=== PATIENT | female | born 1980 | race Caucasian/White ===

== ENCOUNTER → 2020-12-11 09:44 | Outpatient (CLI) | payer MEDICARE, SELFPAY ==
--- NOTE | ~2020-12-11 | MMUS_ITS ---
EXAMINATION: MM diagnostic ruth RT w francisco, US breast RT limited HISTORY: Reported right mammographic subareolar asymmetry on outside mammogram examination of 10/31/19 81 from [facility] TECHNIQUE: Additional 3-D tomosynthesis images of the right breast were performed and synthetic 2-D i mages were generated. CAD analysis was submitted and interpreted. High resolution targeted right suba reolar and 11-1:00 breast ultrasound was performed. COMPARISON: 10/30/2020 bilateral screening mammogram BREAST PARENCHYMAL COMPOSITION: There are scattered areas of fibroglandular density. FINDINGS: MAMMOGRAPHIC FINDINGS: No suspicious mass or architectural distortion is detected. No malignant calcification, skin thickeni ng or retraction. There is mild asymmetric density in the subareolar and upper mid right breast elva red to the left on 10/31/1999 21 Imaging [facility] mammogram examination; therefore THE SUBAREOL AR AREA AND UPPER MID RIGHT BREAST WAS PERFORMED.. ULTRASOUND: No abnormal mass or suspicious shadowing or other significant abnormality is noted in the subareolar area from 11:00 to 1:00. IMPRESSION: 1. No mammographic evidence of malignancy 2. Routine mammographic screening is recommended. BI-RADS Category 1: Negative Reviewed, dictated and finalized at location A. IMPRESSION: 1. No mammographic evidence of malignancy 2. Routine mammographic screening is recommended. BI-RADS Category 1: Negative
== END ==
PROVIDERS: Visit Provider Obstetrics & Gynecology
DX: R92.8 Other abnormal and inconclusive findings on diagnostic imaging of breast (principal)
CPT/HCPCS: 76642; 77061; 77065; G0279

== ENCOUNTER 2021-04-04 22:30 | Emergency (ER) | payer MEDICARE, SELFPAY ==
--- NOTE | ~2021-04-04 | CT_ITS ---
EXAMINATION: CT abdomen pelvis w con INDICATION: Abdominal pain TECHNIQUE: Computed tomographic images of the abdomen and pelvis were obtained after the administrati on of 100 cc of Omnipaque 350 intravenous contrast. The dose-length product (DLP) was 454.45 mGy-cm. Automated exposure control and iterative reconstruction technique were employed. COMPARISON: None available FINDINGS: The lung bases are clear. The heart size is normal. The liver, spleen, pancreas, gallbladde r, and adrenal glands are normal. The kidneys are unremarkable. No pathologically enlarged abdominal or pelvic lymph nodes are identified. There is no free intraperitoneal gas or evidence of bowel obstr uction. The appendix is normal. There are changes of posterior fusion from L4 through S1. A small fat -containing umbilical hernia is noted. IMPRESSION: 1. No CT correlate for the patient's symptoms. Reviewed, dictated and finalized at location A. UNT RECEIVABLE ASSOCIATE
[2021-04-04 22:35] VITALS: BP 137/90; PULSE 124; RESP 14; TEMP 36.6; O2SAT 100
[2021-04-04 23:00] LABS: Basophils Absolute Auto 0.1 K/mm3 (0.0-0.1); Basophils Percent Auto 0.9 % (0.2-1.2); Eosinophils Absolute Auto 0.1 K/mm3 (0-0.3); Eosinophils Percent Auto 1.6 % (0-4.4); Hematocrit 38.7 % (37.0-47.0); Hemoglobin 13.8 g/dL (12.0-15.0); Immature Granulocyte Absolute 0.02 K/mm3 (0.00-0.031); Immature Granulocyte Percent A 0.3 % (0-0.5); Lymphocytes Absolute Auto 2.26 K/mm3 (0.9-3.2); Lymphocytes Percent Auto 33.1 % (18.3-44.2); Mean Corpuscular HGB Conc 35.7 g/dl (32-36); Mean Corpuscular Hemoglobin 31.9 pg (26-34); Mean Corpuscular Volume 89.4 fl (80-100); Mean Platelet Volume 9.7 fl (7.4-10.4); Monocytes Absolute Auto 0.8 K/mm3 (0.1-0.6); Monocytes Percent Auto 11.6 % (2.6-8.5); Neutrophils Absolute Auto 3.6 K/mm3 (1.3-6.7); Neutrophils Percent Auto 52.5 % (45.5-73.1); Platelet Count Result 279 k/mm3 (150-375); Red Blood Count 4.33 M/mm3 (4.2-5.4); Red Cell Distribution Width 11.5 % (11.5-14.5); White Blood Count 6.8 K/mm3 (4.5-10.0)
--- NOTE | 2021-04-04 23:06 | ED.ABDPAIN ---
HPI - Abdominal Pain General Chief Complaint: Abdominal Pain Stated Complaint: diarrhea, abdominal pain, colonoscopy yesterday Time Seen by Provider: 04/04/21 22:39 Source: patient Mode of arrival: ambulatory Limitations: no limitations History of Present Illness HPI narrative: This is a 40 year old female that presents to the ER for diarrhea present since yesterday. Reports she had a colonoscopy at [facility] yesterday. Ever since she has had ongoing diarrhea. Associated with crampy abdominal pain. Also reports some episodes of nausea and vomiting. Denies fever, dysuria, or hematochezia. Related Data Allergies Allergy/AdvReac Type Severity Reaction Status Date / Time codeine Allergy Intermediate Hives / Verified 04/04/21 23:24 Red Face acetaminophen [From Vicodin] Allergy Hives Verified 04/04/21 23:24 hydrocodone [From Vicodin] Allergy Hives Verified 04/04/21 23:24 metronidazole [From Flagyl] Allergy Nausea and Verified 04/04/21 23:24 Vomiting ondansetron [From Zofran] Allergy Hives Verified 04/04/21 23:24 pregabalin [From Lyrica] Allergy Anaphylaxis Verified 04/04/21 23:24 Review of Systems Review of Systems: CONSTITUTIONAL: Denies fever GASTROINTESTINAL: Reports abdominal pain, nausea, vomiting, and diarrhea. GENITOURINARY: Denies dysuria or hematuria. All systems reviewed & are unremarkable except as noted in HPI and below PMFSH Past Medical History Medical History (Updated 04/05/21 @ 00:45 by Jo Ann Guzman PA-C) History of migraine Surgical History Surgical History (Updated 04/04/21 @ 23:14 by Jo Ann Guzman PA-C) History of colonoscopy Social History Social History (Updated 04/04/21 @ 23:14 by Jo Ann Guzman PA-C) Substance use: never Exam Narrative: GENERAL: Well-appearing, well-nourished, and in no acute distress. HEAD: Normocephalic, atraumatic. EYES: EOMI. CHEST: Clear to auscultation. No respiratory distress. No wheezes rales or rhonchi HEART: Regular rate and rhythm. No murmur heard. Normal peripheral pulses. ABDOMEN: Soft, nontender, nondistended, normal active bowel sounds. EXTREMITIES: Normal range of motion. No edema. SKIN: Warm, dry, no rash. NEURO: No focal deficits. Alert and oriented x3. PSYCH: Normal mood and affect Course Vital Signs Vital signs: Vital Signs Temperature 97.9 F 04/04/21 22:35 Pulse Rate 124 H 04/04/21 22:35 Respiratory Rate 14 04/04/21 22:35 Blood Pressure 137/90 04/04/21 22:35 Pulse Oximetry 100 04/04/21 22:35 Temperature 97.9 F 04/04/21 22:35 Pulse Rate 124 H 04/04/21 22:35 Respiratory Rate 14 04/04/21 22:35 Blood Pressure 137/90 04/04/21 22:35 Pulse Oximetry 100 04/04/21 22:35 MDM - Abdominal Pain MDM Narrative Medical decision making narrative: Patient presents to the emergency department for abdominal cramping and diarrhea. Had colonoscopy yesterday at [facility]. She is afebrile and nontoxic-appearing. Tachycardic upon arrival. This normalized with IV fluid administration. CBC is without leukocytosis. Metabolic panel with mild dehydration. Patient hydrated with IV fluids in the ED. UA without evidence of infection. CT scan of the abdomen and pelvis is without acute findings. Shows fluid present in a few loops of small bowel as well as a portion of the ascending colon, nonspecific. Patient was updated on case findings. Reports improvement with IV fluids and pain medications. She is to follow-up with her GI doctor. She was given warnings to return to the ER Lab Data Attestation: I reviewed the patient's lab results. Result diagrams: 04/04/21 22:50 04/04/21 22:51 Labs: Lab Results 04/04/21 04/04/21 04/05/21 Range/Units 22:50 22:51 00:06 WBC 6.8 (4.5-10.0) K/mm3 RBC 4.33 (4.2-5.4) M/mm3 Hgb 13.8 (12.0-15.0) g/dL Hct 38.7 (37.0-47.0) % MCV 89.4 (80-100) fl MCH 31.9 (26-34) pg MCHC 35.7 (32-36) g/dl RDW 11.5
[2021-04-04 23:11] LABS: Alanine Aminotransferase 19 U/L (4-35); Albumin Level 4.9 g/dL (3.5-5.1); Alkaline Phosphatase 68 U/L (38-126); Anion Gap 12 mmol/L (8-16); Aspartate Amino Transferase 28 U/L (14-36); Bilirubin,Total 0.5 mg/dL (0.2-1.3); Blood Urea Nitrogen 18 mg/dL (7-17); Calcium 9.5 mg/dL (8.4-10.2); Carbon Dioxide 18 mmol/L (22-30); Chloride 109 mmol/L (98-107); Estimated CRCL calculation 82 ml/min; Estimated Glomerular Filt Rate > 60; Glucose 116 mg/dL (65-110); Lipase 115 U/L (23-300); Potassium 3.7 mmol/L (3.4-5.0); Sodium 139 mmol/L (137-145)
[2021-04-04] MEDS: SODIUM CHLORIDE 0.9% IV 1,000 ML 999 ML IV CONT (23:26)
[2021-04-05 00:16] LABS: Add Urine Microscopic? YES; Appearance Urine Clear (Clear); Bilirubin Urine Negative (Negative); Blood Urine Negative (Negative); Color Urine Yellow (Yellow); Glucose Urine UA Negative (Negative); Ketones Urine Negative (Negative); Leukocyte Esterase Ur Negative LEU/UL (Negative); Mucus Urine Few /lpf; Nitrate Urine Negative (Negative); Protein Urine Negative (Negative); RBC Urine 0-2 /hpf (0-2); Urobilinogen Urine Negative mg/dL (<2.0); WBC Urine 0-3 /hpf
[2021-04-05 00:19] LABS: Specific Grav Ur 1.033 (1.001-1.035)
[2021-04-05] MEDS: DICYCLOMINE HCL INJ 20 MG/2 ML VIAL IM (01:09)
[2021-04-05 01:16] VITALS: BP 117/71; PULSE 105; RESP 18; O2SAT 100
== END 2021-04-05 01:16 | disposition home or self-care (01) ==
PROVIDERS: Physician Assistant; Emergency Provider Emergency Medicine; PCP Family Medicine
DX: R19.7 Diarrhea, unspecified (principal)
CPT/HCPCS: 36415; 74177; 80053; 81001; 81025; 83690; 85025; 96365; 96372; 99284; J0131; J0500; J7030; Q9967

== ENCOUNTER → 2021-06-12 13:48 | Outpatient (CLI) | payer MEDICARE, SELFPAY ==
--- NOTE | ~2021-06-12 | MR_ITS ---
EXAMINATION: MR lumbar spine wo/w con DATE: 06/12/2021 14:50 INDICATION: Lumbar radiculopathy. TECHNIQUE: Magnetic resonance imaging (MRI) of the lumbar spine was performed without and with 14 mL MultiHance intravenous contrast. Sequences included sagittal T2-weighted FSE, sagittal T2-weighted FS FSE, and sagittal and axial T1-weighted FSE. Postcontrast sequences included axial T2-weighted FSE a nd axial and sagittal T1-weighted FS FSE. COMPARISON: CT abdomen and pelvis 04/05/2021 FINDINGS: There is 4 degrees dextrocurvature of thoracolumbar spine. There are changes of posterior f usion procedure from L4 to S1 with pedicle screws. There is mildly decreased disc height at L5-S1 wit h disc calcifications. The distal spinal cord signal intensity is normal. The conus medullaris is at L1. The following disc levels are specifically discussed: L1-L2: The disc does not extend beyond the endplate margin. There is mild bilateral facet joint osteo arthritis. There is no neural foraminal stenosis. There is no central canal stenosis. L2-L3: The disc is mildly bulging. There is moderate bilateral facet joint osteoarthritis. There is m ild bilateral neural foraminal stenosis. There is no central canal stenosis. L3-L4: The disc does not extend beyond the endplate margin. There is mild bilateral facet joint osteo arthritis. There is no neural foraminal stenosis. There is no central canal stenosis. L4-L5: The disc does not extend beyond the endplate margin. There is ankylosis of the facet joints wi th mild hypertrophy. There is no neural foraminal stenosis. There is no central canal stenosis. There is posterior decompression. L5-S1: The disc does not extend beyond the endplate margin. There is ankylosis of the facet joints wi th mild hypertrophy. There is mild left neural foraminal stenosis. There is no central canal stenosis . There is posterior decompression. IMPRESSION: 1. Mild lumbar spondylosis. 2. Posterior fusion procedure from L4 to S1. Reviewed, dictated and finalized at location A.
[2021-06-12 14:26] LABS: Estimated Glomerular Filt Rate > 60
== END ==
DX: M54.16 Radiculopathy, lumbar region (principal); M43.06 Spondylolysis, lumbar region; Z98.1 Arthrodesis status
CPT/HCPCS: 72158; A9577

== ENCOUNTER 2022-08-04 22:10 | Emergency (ER) | payer MEDICARE, SELFPAY ==
[2022-08-04 22:15] VITALS: BP 134/106; PULSE 113; RESP 18; TEMP 36.3; O2SAT 99
== END 2022-08-05 01:21 | disposition left against medical advice (07) ==
DX: Z53.21 Procedure and treatment not carried out due to patient leaving prior to being seen by health care provider (principal)
CPT/HCPCS: 99199

== ENCOUNTER → 2023-03-11 14:51 | Outpatient (CLI) | payer MEDICARE, SELFPAY ==
--- NOTE | ~2023-03-11 | MM_ITS ---
EXAMINATION: MM screening ruth BI w francisco HISTORY: Screening mammogram TECHNIQUE: Craniocaudal and mediolateral oblique 3-D tomosynthesis images were obtained and synthetic 2-D images were generated. CAD analysis was submitted and interpreted. COMPARISON: 12/11/2020, 10/30/2020 BREAST PARENCHYMAL COMPOSITION: There are scattered areas of fibroglandular density. FINDINGS: No suspicious mass, calcification, or architectural distortion are identified in either cooper ast to suggest malignancy. There has been no suspicious interval change. IMPRESSION: 1. No mammographic evidence of malignancy. 2. Recommend routine screening mammography in one year. BI-RADS Category 1: Negative Reviewed, dictated and finalized at location A. ERSITY MANAGER
== END ==
PROVIDERS: PCP Obstetrics & Gynecology; Visit Provider Obstetrics & Gynecology
DX: Z12.31 Encounter for screening mammogram for malignant neoplasm of breast (principal)
CPT/HCPCS: 77063; 77067

== ENCOUNTER 2023-04-09 13:02 | Outpatient (CLI) | payer MEDICARE, SELFPAY ==
--- NOTE | 2023-04-09 | ECHO_ITS ---
Patient Info Name: Carlos Nicole Age: 42 years : 1980 Gender: Female Ht: 65 in Wt: 163 lbs BSA: 1.86 m2 HR: 80 bpm BP: 120 / 70 mmHg Heart Rhythm: Sinus Rhythm Technical Quality: Fair Exam Date: 04/09/2023 1:13 PM Exam Location: Echo Lab Patient Status: Outpatient Admit Date: 04/09/2023 Staff Ordering Physician: Cordell, Dano Anderson MD Business Performance Advisor: Attending Provider: Cordell, Dano Anderson MD Referring Physician: Cordell CARRILLO; Exam Type: CA echo doppler color flow Study Info Indications I50.9 - Heart failure, unspecified Complete two-dimensional, color flow and Doppler transthoracic echocardiogram is performed. Summary 1. Complete two-dimensional, color flow and Doppler transthoracic echocardiogram is performed. 2. Left ventricular chamber dimension is normal. 3. Left ventricular systolic function is normal, estimated at 65-70%. 4. Right ventricular systolic function is normal. 5. No significant valvular disease. Left Ventricle Left ventricular chamber dimension is normal. Left ventricular systolic function is normal, estimated at 65-70%. There is no increased left ventricular wall thickness. The left ventricular diastolic function is normal. Right Ventricle Right ventricular chamber dimension is normal. Right ventricular systolic function is normal. Left Atria Left atrial chamber dimension is normal. Right Atria Right atrial chamber dimension is normal. Atrial Septum Intact interatrial septum visualized by color flow imaging. Aortic Valve The aortic valve is probable trileaflet. There is no aortic valve stenosis. There is no aortic valve regurgitation. Pulmonic Valve The pulmonic valve is not well visualized. Mitral Valve There is trace mitral valve regurgitation. Tricuspid Valve There is trace tricuspid valve regurgitation. Pericardium/Pleural There is no pericardial effusion. Inferior Vena Cava Normal inferior vena cava with >50% collapse upon inspiration consistent with normal right atrial pressure, 3 mmHg. Aorta The aortic root size at the sinus of Valsalva is normal. Left Ventricular Outflow Tract Name Value Normal LVOT 2D LVOT Diameter 1.9 cm LVOT Doppler LVOT Peak Gradient 4 mmHg LVOT Mean Gradient 2 mmHg LVOT VTI 21 cm LVOT VTI/AV VTI Ratio 0.6 LVOT Stroke Volume 61 ml LVOT CO 4.4 l/min LVOT CI 2.4 l/min/m2 Pulmonic Valve Name Value Normal PV Doppler PV Peak Gradient 2 mmHg Mitral Valve Name Value Normal MV Doppler
== END 2023-04-09 13:03 | disposition home or self-care (01) ==
PROVIDERS: PCP Family Medicine; Visit Provider Obstetrics & Gynecology
DX: R89.1 Abnormal level of hormones in specimens from other organs, systems and tissues (principal); I50.9 Heart failure, unspecified
CPT/HCPCS: 93306

== ENCOUNTER 2023-11-26 15:31 | Outpatient (CLI) | payer MEDICARE, SELFPAY ==
--- NOTE | ~2023-11-26 | CT_ITS ---
CLINICAL INDICATION: Adrenal cortical insufficiency COMPARISON: 04/05/2021. TECHNIQUE: Computed tomography (CT) of the abdomen was performed without intravenous contrast. The do se-length product was 267.05 mGy-cm. FINDINGS/OBSERVATIONS: Visualized lower thorax:The bilateral lung bases are clear. The heart is of normal size, without pericardial effusion. A small air opacified hiatal hernia is present. Liver: The liver is not enlarged measuring 15 cm in longitudinal dimension. Gallbladder and biliary system: The gallbladder is only minimally distended, without calcified stones . Pancreas: Limited evaluation without intravenous contrast Spleen: The spleen is not enlarged. Kidneys: No hydronephrosis or renal calculi. Adrenal glands: Unremarkable in their course and contour Gastrointestinal tract: Fecal stasis within the colon. Appendix:Not included on the submitted examination. Vasculature: Unremarkable Lymph nodes: No pathologically enlarged or morphologically nodes within the retroperitoneum or the ro ot of the mesentery. IMPRESSION: Unremarkable noncontrast enhanced CT examination of the abdomen, as detailed above. Reviewed, dictated and finalized at location A. IMPRESSION: Unremarkable noncontrast enhanced CT examination of the abdomen, as detailed ab ove.
== END 2023-11-26 15:32 | disposition home or self-care (01) ==
LOC: MICIMG 15:33
PROVIDERS: PCP Physician Assistant; Visit Provider Physician Assistant
DX: E27.40 Unspecified adrenocortical insufficiency (principal)
CPT/HCPCS: 74150

== ENCOUNTER 2023-12-28 15:53 | Emergency (ER) | payer MEDICARE, SELFPAY ==
[2023-12-28 15:55] VITALS: BP 126/90; PULSE 110; RESP 18; TEMP 36.2; O2SAT 100
--- NOTE | 2023-12-28 17:28 | ED.DENTAL ---
HPI - Dental/Oral General Chief complaint: Dental/Oral Stated complaint: right jaw swelling Time Seen by Provider: 12/28/23 17:13 History of Present Illness HPI Narrative: 43-year-old female presents emergency department for swelling and pain to her right anterior lower gumline for the past couple of days. Patient states she made appoint with her dentist but is unable to get until tomorrow evening. States she has been taking aspirin and ibuprofen without improvement. She reports nausea but denies vomiting, fevers. Denies difficulty breathing or swallowing, drooling, trismus, otalgia or sore throat. Related Data Home Medications Medication Instructions Recorded Confirmed amitriptyline 50 mg tablet 50 mg PO QHS 01/21/23 12/01/23 famotidine 20 mg tablet 20 mg PO DAILY 01/21/23 12/01/23 methylprednisolone acetate 40 40 mg IM .every 3 months 01/21/23 12/01/23 mg/mL suspension for injection (Depo-Medrol) morphine 15 mg immediate release 15 mg PO Q8H PRN 01/21/23 12/01/23 tablet oxycodone-acetaminophen 5 mg-325 1 tablet PO Q6H PRN 01/21/23 12/01/23 mg tablet (Percocet) propranolol 80 mg tablet 80 mg PO DAILY 01/21/23 12/01/23 sumatriptan succinate 50 mg tablet See Rx Instructions PO .COMPLEX 01/21/23 12/01/23 tizanidine 4 mg capsule 4 mg PO QHS PRN 01/21/23 12/01/23 topiramate 25 mg tablet (Topamax) 25 mg PO DAILY 01/21/23 12/01/23 topiramate 50 mg tablet (Topamax) 50 mg PO BID 01/21/23 12/01/23 Allergies Allergy/AdvReac Type Severity Reaction Status Date / Time metronidazole [From Flagyl] Allergy Unknown Verified 12/28/23 15:57 ondansetron [From Zofran] Allergy Unknown Verified 12/28/23 15:57 pregabalin [From Lyrica] Allergy Unknown Verified 12/28/23 15:57 Review of Systems Review of Systems: All systems reviewed & are unremarkable except as noted in HPI and below PMFSH Past Medical History Medical History History of migraine Surgical History Surgical History History of colonoscopy Family History Family History Mother Carcinoma of colon A-fib Grandparent Carcinoma of colon Social History Social History Smoking status: Unknown if ever smoked Alcohol intake: current Alcohol use details: social Substance use: never Exam Narrative: GENERAL: Well-appearing, well-nourished, and in no acute distress. HEAD: Normocephalic, atraumatic. EYES: EOMI. ENT: Nares clear, no rhinorrhea or epistaxis. Mucous membranes moist. Staining to the right lower molars with receding gum lines, mild focal edema to the right anterior lower, line. No submandibular edema, no periapical abscess. No areas of fluctuation or cellulitis. No crepitus or vesicles. Posterior pharynx without erythema or tonsillar hypertrophy, uvula is midline. Patient tolerating secretions. No trismus. Floor mouth is soft without crepitus. Bilateral TMs are rodriguez nonbulging with normal canals. NECK: Supple. CHEST: Clear to auscultation. No respiratory distress. HEART: Regular rate and rhythm. No murmur heard. Normal peripheral pulses. EXTREMITIES: Normal range of motion. No edema. SKIN: Warm, dry, no rash. NEURO: No focal deficits. Alert and oriented x3 Course Vital Signs Vital signs: Vital Signs Temperature 97.2 F L 12/28/23 15:55 Pulse Rate 110 H 12/28/23 15:55 Respiratory Rate 18 12/28/23 15:55 Blood Pressure 126/90 12/28/23 15:55 Pulse Oximetry 100 12/28/23 15:55 Temperature 97.2 F L 12/28/23 15:55 Pulse Rate 110 H 12/28/23 15:55 Respiratory Rate 18 12/28/23 15:55 Blood Pressure 126/90 12/28/23 15:55 Pulse Oximetry 100 12/28/23 15:55 MDM - Dental/Oral MDM Narrative Medical decision making narrative: 43-year-old female presents emergency department for right anterior lower gum pain and edema for the past couple of days. Vitals with tachycardia 110. Patient does appear anxious which is likely cause of tachycardia. She is afebrile nontoxic appearing. Exam is significant for the above, notably a focal area of edema and tenderness to palpation to the right anterior lower gumline. There is no evidence of periapical abscess.No Crepitus, fluctuance. No trismus. She is tolerating her secretions and speaking in full sentences. Patient does have receding gum lines staining to the right lower molars and premolars. Suspect the source of patient's presentation is secondary to dental infection. Feel she is safe to be discharged home with p.o. antibiotics. Will provide ibuprofen and viscous lidocaine for symptomatic control. Strongly encouraged her to follow up with her dentist tomorrow at her appointment. Discussed strict ED return precautions. She is agreeable to plan and verbalized understanding. Discharged in stable condition. Discharge Plan Discharge Clinical Impression: Toothache Patient Disposition: Home, Self-Care Condition: Stable Instructions: Antibiotic Form, Toothache (ED) Additional Instructions: You were evaluated in the emergency department for pain and swelling to her gum line. This is likely due to an intraoral infection or dental infection. Please take the antibiotic as directed. Take ibuprofen and use the lidocaine as directed. Follow-up closely with her dentist to your appointment tomorrow. Return to the emergency department if you develop a fever of 100.4 or greater, your unable to tolerate food or fluids, you begin to drool, have difficulty breathing, or other concerning symptoms. Prescriptions: New amoxicillin-pot clavulanate 875-125 mg tablet 1 tablet PO Q12H Qty: 14 0RF lidocaine HCl [Lidocaine Viscous] 2 % solution 1 applic mucous membrane QID PRN (Reason: pain) Qty: 100 0RF ibuprofen 800 mg tablet 800 mg PO TID PRN (Reason: pain) Qty: 20 0RF No Action amitriptyline 50 mg tablet 50 mg PO QHS sumatriptan succinate 50 mg tablet See Rx Instructions PO .COMPLEX Rx Instructions: take 1 tab at onset of headache; if no relief may repeat 1 tab after at least 2 hrs; max = 4 tabs/24 hr PO topiramate [Topamax] 50 mg tablet 50 mg PO BID topiramate [Topamax] 25 mg tablet 25 mg PO DAILY propranolol 80 mg tablet 80 mg PO DAILY famotidine 20 mg tablet 20 mg PO DAILY tizanidine 4 mg capsule 4 mg PO QHS PRN oxycodone-acetaminophen [Percocet] 5-325 mg tablet 1 tablet PO Q6H PRN morphine 15 mg tablet 15 mg PO Q8H PRN methylprednisolone acetate [Depo-Medrol] 40 mg/mL suspension 40 mg IM .every 3 months Rx Instructions: as a single dose diphenoxylate-atropine 2.5-0.025 mg tablet 1 tablet PO TID PRN (Reason: diarrhea) 3 Days Qty: 10 0RF calcium polycarbophil [FiberCon] 625 mg tablet 1,250 mg PO BID Qty: 120 12RF dicyclomine 10 mg capsule See Rx Instructions .ROUTE .COMPLEX Qty: 270 1RF Dose Instruction: TAKE 1 CAPSULE BY MOUTH THREE TIMES DAILY Rx Instructions: TAKE 1 CAPSULE BY MOUTH THREE TIMES DAILY promethazine 12.5 mg tablet 12.5 mg PO TID PRN (Reason: nausea and vomiting) Qty: 60 1RF budesonide 3 mg capsule,delayed,extend.release 9 mg PO DAILY Qty: 90 1RF Follow-up/Referrals: Anabelle,CHARLY Briggs [Primary Care Provider] - Stand Alone Forms: Work/School Release IP
[2023-12-28] MEDS: KETOROLAC 30 MG/ML VIAL (*BKC) IM (17:38)
[2023-12-28] MEDS: HYDROcodone/acetaminophen (*CRX) 5-325 MG TABLET 1 TAB PO (17:38)
[2023-12-28] MEDS: AMOXICILLIN/CLAVULANATE K 875-125 MG TAB 1 TABLET PO (17:38)
[2023-12-28 17:41] VITALS: BP 147/100; PULSE 90; RESP 18; TEMP 36.4; O2SAT 100
== END 2023-12-28 17:47 | disposition home or self-care (01) ==
PROVIDERS: Emergency Provider Physician Assistant; PCP Physician Assistant
DX: K08.9 Disorder of teeth and supporting structures, unspecified (principal); Z79.899 Other long term (current) drug therapy
CPT/HCPCS: 96372; 99283; A9270; J1885

== ENCOUNTER 2024-06-02 14:00 | Outpatient (CLI) | payer MEDICARE, OTHER, SELFPAY ==
--- OUTSIDE RECORDS SUMMARY | 2024-06-02 14:21 | XMS_ITS | Clinical Summary ---
Author Organization [facility] Address [address] [place] [address] Care Team Providers Care Lock And Dam Operator Name Role Phone None, Provider MD Primary Care Provider Unavaila ble Allergies Active Allergy Reactions Criticality Noted Date Comments Metronidazole Swelling 12/29/2023 Pregabalin Unknown 12/29/2023 Ondansetron Nausea and Vomiting 12/29/2023 Medications No known medications Social History Tobacco Use Types Packs/Day Years Used Date Smoking Tobacco: Never Assessed Comments Unknown Sex and Gender Information Value Date Recorded Sex Assigned at Not on file Legal Sex Female 5:43 PM MANAGER TRADING Gender Identity Not on file Sexual Orientation Not on file Last Filed Vital Signs Vital Sign Reading Time Taken Comments Blood Pressure 138/90 12/29/2023 8:01 PM MANAGER TRADING Pulse 100 12/29/2023 8:01 PM MANAGER TRADING Temperature 37.1 C (98.7 F) 12/29/2023 8:01 PM MANAGER TRADING Respiratory Rate 16 12/29/2023 8:01 PM MANAGER TRADING Oxygen Saturation 100% 12/29/2023 8:01 PM MANAGER TRADING Inhaled Oxygen Concentration - - Weight 70.5 kg (155 lb 6.8 oz) 12/29/2023 6:12 P M MANAGER TRADING Height 166.4 cm (5' 5.5 ) 12/29/2023 6:12 PM MANAGER TRADING Body Mass Index 25.47 12/29/2023 6:12 PM MANAGER TRADING Plan of Treatment Health Maintenance Due Date Last Done Comments Cervical Cancer Screening Pap Smear (Age 30 to 64) Every 3 Years 1980 Colorectal Cancer Screening Colonoscopy (10 Years) 1980 Annual Physical 05/06/1982 DTaP, Tdap and Td Vaccines (5 - Tdap) 08/06/1994 08/05/1994, 09/18/1984, 12/13/1980, Additional history exists Hepatitis C 05/06/1997 Hepatitis B Vaccines (1 of 3 - 19+ 3-dose series) 05/06/1998 Cervical Cancer Screening Pap with HPV Testing (Age 30 to 64) Every 5 Years 05/06/2009 Cervical Cancer Screening with HPV 05/06/2009 Mammogram Screening 2019 COVID-19 Vaccine (2023- season) 2023 06/12/2020, 05/20/2020 HPV Vaccines Aged Out No longer eligi ble based on patient's age to complete this topic Meningococcal B Vaccine Aged Out No l onger eligible based on patient's age to complete this topic Meningococcal Vaccine Aged Out No katy nicole eligible based on patient's age to complete this topic Pneumococcal Vaccine: Pediatrics (0 to 5 Years) and At-Risk Patients (6 to 49 Years) Aged Out No longer eligible based on patient's age to complete this topic RSV Immunizations Under 20 Months Aged Out No longer eligible based on patient's age to complete this topic Insurance [employer] Care Teams Lock And Dam Operator Relationship Specialty Start Date End Date None, Provider, PCP - General UNKNOWN PHYSICIAN SPECIALTY 12/29/23
--- OUTSIDE RECORDS SUMMARY | 2024-06-02 14:21 | XMS_ITS | Data Portability ---
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 Lengthy discussion regarding environmental causes of vaginal irritation/disch arge. Pateint cannot come up with anything that would be causing problem. Not available 06/04/2023 15:28:32 08/18/2023 08/18/2023/2 labs. [email or web address] Not available 03/2023 12:52:08 Plan of Treatment Reminders Order Date Submit Date Provider Last Modified By Organization Details Last Modified Time Details Appointments ANNUAL 30 2024 02:30P David Tesfaye MD Not available Not available Not available Lab None recorded. Referral endocrino logy referral 2023 024 [email or web address] Barrba Mckeon MD, [address], [place], [address], 08/14/2023 08:10:50 Procedures None recorded. Surgeries None recorded. Imaging MAMMO, screening , bilateral 2024 025 [email or web address] [facility], [address], [address], [place], [address], 05/04/2024 08:09:37 US, adrenal gland 2023 024 [email or web address] [facility], [address] [address], [place], [address], 09/16/2023 07:53:12 MAMMO, screening , digital, bilateral 2023 024 [email or web address] [facility] (Radiology), [address] [address] , [place], [address], 03/16/2024 10:42:[address] 10 mg tablet 2024 025 [facility]/Pharmacy #2510, [address] [place], [address], 04/27/2024 09:58:45 propranol ol ER 80 mg capsule,2 4 hr,extend ed release 2024 025 [facility]/Pharmacy #2510, [address] [place], [address], 04/27/2024 09:58:55 erythromy charlotte 5 mg/gram (0.5 %) eye ointment 2023 025 [facility] [address] [place], [address], 04/27/2024 09:40:47 promethaz ine 25 mg tablet 2023 024 [facility]/Pharmacy #2510, [address] [place], [address], 09/09/2023 16:12:11 triamcino lone acetonide 0.1 % topical ointment 2023 024 [facility]/Pharmacy #2510, [address] [place], [address], 09/09/2023 16:12:30 trazodone 50 mg tablet 2023 025 [facility]/Pharmacy #2510, [address] [place], [address], 04/12/2024 11:21:54 medroxypr ogesteron e 150 mg/mL intramusc ular suspensio n 2023 024 [facility]/Pharmacy #2510, [address] [place], [address], 06/04/2023 15:27:07 Patient TargetsNo targets recorded. Patient Instructions Encounter Date Encounter Id Patient Instructions Last Modified By Organization Details Last Modified Time 06/04/2023 [id number] learning about breast cancer screening Not available 06/04/2023 15:11:28 04/27/2024 [id number] A healthy lifestyle: care instructions [email or web address] Not available 04/28/2024 10:19:53 Reason for Referral Endocrinology Referral for L oss of hair Referring Physician: Brigitte Ahn, Family Medicine, Encounter Date: 07/31/2023 Results Created Date Observation Date Name Description Value Unit Range Abnormal Flag Note LastModifiedBy Organization Detail LastModifiedTime 05/12/1905/13/2023 SEDIM ENTAT ION RATE- WESTE RGREN sedimentatio n rate-westerg gaurang 2 mm/HR 0-32 Not Available [facility] ([facility]) [address] [place], [address], 05/13/2023 07:13:05 05/12/19 24 05/13/2023 B-TYP E NATRI URETI C PEPTI DE B-type natriuretic peptide 37.9 pg/mL 0.0-10 0.0 Sieme ns ADVIA [facility] XP metho dolog y Not Available [facility] ([facility]) [address] [place], [address], 05/13/2023 08:23:28 05/15/19 24 05/16/2023 COMP. METAB OLIC PANEL (14) glucose 86 mg/dL 70-99 Not Available [facility] ([facility]) [address] [facility] [place], [address], 05/16/2023 06:17:10 05/15/19 24 05/16/2023 COMP. METAB OLIC PANEL (14) BUN 7 mg/dL 6-24 Not Available [facility] ([facility]) [address] [facility] [place], [address], 05/16/2023 06:17:10 05/15/19 24 05/16/2023 COMP. METAB OLIC PANEL (14) creatinine 0.93 mg/dL 0.57-1 .00 Not Available [facility] ([facility]) [address] [facility] [place], [address], 05/16/2023 06:17:10 05/15/19 24 05/16/2023 COMP. METAB OLIC PANEL (14) eGFR 78 mL/mi n/1.7 3 >59 Not Available [facility] ([facility]) [address] [facility] [place], [address], 05/16/2023 06:17:10 05/15/19 24 05/16/2023 COMP. METAB OLIC PANEL (14) BUN/creatini ne ratio 8 9-23 below low normal Not Available [facility] ([facility]) [address] [facility] [place], [address], 05/16/2023 06:17:10 05/15/19 24 05/16/2023 COMP. METAB OLIC PANEL (14) sodium 143 mmol/ L 134-14 4 Not Available [facility] ([facility]) [address] [facility] [place], [address], 05/16/2023 06:17:10 05/15/19 24 05/16/2023 COMP. METAB OLIC PANEL (14) potassium 4.4 mmol/ L 3.5-5. 2 Not Available [facility] ([facility]) [address] [facility] [place], [address], 05/16/2023 06:17:10 05/15/19 24 05/16/2023 COMP. METAB OLIC PANEL (14) chloride 107 mmol/ L 96-106 above high normal Not Available [facility] ([facility]) [address] [facility], [place], [address], 05/16/2023 06:17:10 05/15/19 24 05/16/2023 COMP. METAB OLIC PANEL (14) carbon dioxide, total 21 mmol/ L - Not Available [facility] ([facility]) [address] [facility], [place], [address], 05/16/2023 06:17:10 05/15/19 24 05/16/2023 COMP. METAB OLIC PANEL (14) calcium 9.5 mg/dL 8.7-10 .2 Not Available [facility] ([facility]) [address] [facility], [place], [address], 05/16/2023 06:17:10 05/15/19 24 05/16/2023 COMP. METAB OLIC PANEL (14) protein, total 7.5 g/dL 6.0-8. 5 Not Available [facility] ([facility]) [address] [facility], [place], [address], 05/16/2023 06:17:10 05/15/19 24 05/16/2023 COMP. METAB OLIC PANEL (14) albumin 4.8 g/dL 3.9-4. 9 Not Available [facility] ([facility]) [address] [facility] [place], [address], 05/16/2023 06:17:10 05/15/19 24 05/16/2023 COMP. METAB OLIC PANEL (14) globulin, total 2.7 g/dL 1.5-4. 5 Not Available [facility] ([facility]) [address] [facility] [place], [address], 05/16/2023 06:17:10 05/15/19 24 05/16/2023 COMP. METAB OLIC PANEL (14) A/G ratio 1.8 1.2-2. 2 Not Available [facility] ([facility]) [address] [facility], [place], [address], 05/16/2023 06:17:10 05/15/19 24 05/16/2023 COMP. METAB OLIC PANEL (14) bilirubin, total 0.3 mg/dL 0.0-1. 2 Not Available [facility] ([facility]) [address] [facility], [place], [address], 05/16/2023 06:17:10 05/15/19 24 05/16/2023 COMP. METAB OLIC PANEL (14) alkaline phosphatase 59 IU/L 44-121 Not Available [facility] ([facility]) [address], [place], [address], 05/16/2023 06:17:10 05/15/19 24 05/16/2023 COMP. METAB OLIC PANEL (14) AST (SGOT) 15 IU/L 0-40 Not Available [facility] ([facility]) [address] [facility], [place], [address], 05/16/2023 06:17:10 05/15/19 24 05/16/2023 COMP. METAB OLIC PANEL (14) ALT (SGPT) 15 IU/L 0-32 Not Available [facility] ([facility]) [address] [facility], [place], [address], 05/16/2023 06:17:10 05/15/19 24 05/16/2023 CBC/D IFF AMBIG UOUS DEFAU LT WBC 4.7 x10e3 /uL 3.4-10 .8 Not Available [facility] ([facility]) [address] [facility], [place], [address], 05/16/2023 06:17:11 05/15/19 24 05/16/2023 CBC/D IFF AMBIG UOUS DEFAU LT RBC 4.36 x10e6 /uL 3.77-5 .28 Not Available [facility] ([facility]) [address] [facility], [place], [address], 05/16/2023 06:17:11 05/15/19 24 05/16/2023 CBC/D IFF AMBIG UOUS DEFAU LT hemoglobin 13.4 g/dL 11.1-1 5.9 Not Available [facility] ([facility]) [address] [facility], [place], [address], 05/16/2023 06:17:11 05/15/19 24 05/16/2023 CBC/D IFF AMBIG UOUS DEFAU LT hematocrit 40.3 % 34.0-4 6.6 Not Available [facility] ([facility]) [address] [facility], [place], [address], 05/16/2023 06:17:11 05/15/19 24 05/16/2023 CBC/D IFF AMBIG UOUS DEFAU LT MCV 92 fL 79-97 Not Available [facility] ([facility]) [address] [facility], [place], [address], 05/16/2023 06:17:11 05/15/19 24 05/16/2023 CBC/D IFF AMBIG UOUS DEFAU LT MCH 30.7 pg 26.6-3 3.0 Not Available [facility] ([facility]) [address] [facility], [place], [address], 05/16/2023 06:17:11 05/15/19 24 05/16/2023 CBC/D IFF AMBIG UOUS DEFAU LT MCHC 33.3 g/dL 31.5-3 5.7 Not Available [facility] ([facility]) [address] [facility], [place], [address], 05/16/2023 06:17:11 05/15/19 24 05/16/2023 CBC/D IFF AMBIG UOUS DEFAU LT RDW 11.8 % 11.7-1 5.4 Not Available [facility] ([facility]) [address] [facility] [facility], [place], [address], 05/16/2023 06:17:11 05/15/19 24 05/16/2023 CBC/D IFF AMBIG UOUS DEFAU LT platelets 263 x10e3 /uL 150-45 0 Not Available [facility] ([facility]) [address] [facility], [place], [address], 05/16/2023 06:17:11 05/15/19 24 05/16/2023 CBC/D IFF AMBIG UOUS DEFAU LT neutrophils 38 % notest ab. Not Available [facility] ([facility]) [address] [facility], [place], [address], 05/16/2023 06:17:11 05/15/19 24 05/16/2023 CBC/D IFF AMBIG UOUS DEFAU LT lymphs 50 % notest ab. Not Available [facility] ([facility]) [address], [place], [address], 05/16/2023 06:17:11 05/15/19 24 05/16/2023 CBC/D IFF AMBIG UOUS DEFAU LT monocytes 9 % notest ab. Not Available [facility] ([facility]) [address] [facility], [place], [address], 05/16/2023 06:17:11 05/15/19 24 05/16/2023 CBC/D IFF AMBIG UOUS DEFAU LT eos 2 % notest ab. Not Available [facility] ([facility]) [address] [facility], [place], [address], 05/16/2023 06:17:11 05/15/19 24 05/16/2023 CBC/D IFF AMBIG UOUS DEFAU LT basos 1 % notest ab. Not Available [facility] ([facility]) [address] [facility], [place], [address], 05/16/2023 06:17:11 05/15/19 24 05/16/2023 CBC/D IFF AMBIG UOUS DEFAU LT neutrophils (absolute) 1.8 x10e3 /uL 1.4-7. 0 Not Available [facility] ([facility]) [address] [facility], [place], [address], 05/16/2023 06:17:11 05/15/19 24 05/16/2023 CBC/D IFF AMBIG UOUS DEFAU LT lymphs (absolute) 2.3 x10e3 /uL 0.7-3. 1 Not Available [facility] ([facility]) [address] [facility], [place], [address], 05/16/2023 06:17:11 05/15/19 24 05/16/2023 CBC/D IFF AMBIG UOUS DEFAU LT monocytes(ab solute) 0.4 x10e3 /uL 0.1-0. 9 Not Available [facility] ([facility]) [address] [facility], [place], [address], 05/16/2023 06:17:11 05/15/19 24 05/16/2023 CBC/D IFF AMBIG UOUS DEFAU LT eos (absolute) 0.1 x10e3 /uL 0.0-0. 4 Not Available [facility] ([facility]) [address] [facility], [place], [address], 05/16/2023 06:17:11 05/15/19 24 05/16/2023 CBC/D IFF AMBIG UOUS DEFAU LT baso (absolute) 0.1 x10e3 /uL 0.0-0. 2 Not Available [facility] ([facility]) [address] [facility] [facility], [place], [address], 05/16/2023 06:17:11 05/15/19 24 05/16/2023 CBC/D IFF AMBIG UOUS DEFAU LT immature granulocytes 0 % notest ab. Not Available [facility] ([facility]) [address] [facility], [place], [address], 05/16/2023 06:17:11 05/15/19 24 05/16/2023 CBC/D IFF AMBIG UOUS DEFAU LT immature grans (abs) 0.0 x10e3 /uL 0.0-0. 1 Not Available [facility] ([facility]) [address] [facility], [place], [address], 05/16/2023 06:17:11 05/15/19 24 05/16/2023 CBC/D IFF AMBIG UOUS DEFAU LT hematology comments: - A hand- writt en panel /prof ile was recei marge from your offic e. In accor dance with the [facility] Ambig uous Test Code Polic y dated August 2002, we have assig mikaela CBC with Diffe tavia al/Pl leilani t, Test Code #[address]. If this is not the testi ng you wishe d to recei ve on this speci men, pleas e conta ct the [facility] Clien t Inqui ry/ Techn ical Servi chaka Depar tment to dayday fy the test order . We appre ciate your busin ess. Not Available [facility] ([facility]) [address] [facility], [place], [address], 05/16/2023 06:17:11 08/18/19 24 08/19/2023 TESTO STERO NE,FR EE AND TOTAL testosterone <3 NG/dL 4-50 below low normal Not Available [facility] ([facility]) [address] [place], [address], 08/24/2023 13:08:36 08/18/19 24 08/24/2023 TESTO STERO NE,FR EE AND TOTAL free testosterone (direct) <0.2 Not Available [facility] ([facility]) [address] [facility], [place], [address], 08/24/2023 13:08:36 08/18/19 24 08/19/2023 TSH+F REE T4 TSH 1.960 uIU/m L 0.450- 4.500 Not Available [facility] ([facility]) [address] [facility] [place], [address], 08/24/2023 13:08:36 08/18/19 24 08/19/2023 TSH+F REE T4 T4,free(dire ct) 1.18 NG/dL 0.82-1 .77 Not Available [facility] ([facility]) [address] [facility] [place], [address], 08/24/2023 13:08:36 08/18/19 24 08/19/2023 COMP. METAB OLIC PANEL (14) glucose 89 mg/dL 70-99 Not Available [facility] ([facility]) [address] [facility] [place], [address], 08/24/2023 13:08:37 08/18/19 24 08/19/2023 COMP. METAB OLIC PANEL (14) BUN 12 mg/dL 6-24 Not Available [facility] ([facility]) [address] [facility] [place], [address], 08/24/2023 13:08:37 08/18/19 24 08/19/2023 COMP. METAB OLIC PANEL (14) creatinine 0.79 mg/dL 0.57-1 .00 Not Available [facility] ([facility]) [address] [facility] [place], [address], 08/24/2023 13:08:37 08/18/19 24 08/19/2023 COMP. METAB OLIC PANEL (14) eGFR 95 mL/mi n/1.7 3 >59 Not Available [facility] ([facility]) [address] [facility] [place], [address], 08/24/2023 13:08:37 08/18/19 24 08/19/2023 COMP. METAB OLIC PANEL (14) BUN/creatini ne ratio 15 9-23 Not Available [facility] ([facility]) [address] [facility] [place], [address], 08/24/2023 13:08:37 08/18/19 24 08/19/2023 COMP. METAB OLIC PANEL (14) sodium 138 mmol/ L 134-14 4 Not Available [facility] ([facility]) [address] [facility] [place], [address], 08/24/2023 13:08:37 08/18/19 24 08/19/2023 COMP. METAB OLIC PANEL (14) potassium 4.3 mmol/ L 3.5-5. 2 Not Available [facility] ([facility]) [address] [facility], [place], [address], 08/24/2023 13:08:37 08/18/19 24 08/19/2023 COMP. METAB OLIC PANEL (14) chloride 104 mmol/ L 96-106 Not Available [facility] ([facility]) [address] [facility] [place], [address], 08/24/2023 13:08:37 08/18/19 24 08/19/2023 COMP. METAB OLIC PANEL (14) carbon dioxide, total 19 mmol/ L 20-29 below low normal Not Available [facility] ([facility]) [address] [facility], [place], [address], 08/24/2023 13:08:37 08/18/19 24 08/19/2023 COMP. METAB OLIC PANEL (14) calcium 9.6 mg/dL 8.7-10 .2 Not Available [facility] ([facility]) [address] [facility] [place], [address], 08/24/2023 13:08:37 08/18/19 24 08/19/2023 COMP. METAB OLIC PANEL (14) protein, total 7.4 g/dL 6.0-8. 5 Not Available [facility] ([facility]) [address] [place], [address], 08/24/2023 13:08:37 08/18/19 24 08/19/2023 COMP. METAB OLIC PANEL (14) albumin 4.7 g/dL 3.9-4. 9 Not Available [facility] ([facility] [address] [place], [address], 08/24/2023 13:08:37 08/18/19 24 08/19/2023 COMP. METAB OLIC PANEL (14) globulin, total 2.7 g/dL 1.5-4. 5 Not Available [facility] ([facility]) [address], [place], [address], 08/24/2023 13:08:37 08/18/19 24 08/19/2023 COMP. METAB OLIC PANEL (14) bilirubin, total 0.5 mg/dL 0.0-1. 2 Not Available [facility] ([facility] [address] [place], [address], 08/24/2023 13:08:37 08/18/19 24 08/19/2023 COMP. METAB OLIC PANEL (14) alkaline phosphatase 60 IU/L 44-121 Not Available [facility]) [address] [facility], [place], [address], 08/24/2023 13:08:37 08/18/19 24 08/19/2023 COMP. METAB OLIC PANEL (14) AST (SGOT) 18 IU/L 0-40 Not Available [facility] ([facility] [address] [place] [place], [address], 08/24/2023 13:08:37 08/18/19 24 08/19/2023 COMP. METAB OLIC PANEL (14) ALT (SGPT) 17 IU/L 0-32 Not Available [facility] ([facility]) [address] [facility], [place], [address], 08/24/2023 13:08:37 08/18/19 24 08/19/2023 DHEA- SULFA TE DHEA-sulfate 37.9 ug/dL 57.3-2 79.2 below low normal Not Available [facility] ([facility]) [address] [facility], [place], [address], 08/24/2023 13:08:38 08/18/19 24 08/19/2023 CBC WITH DIFFE RENTI AL/PL ATELE T WBC 7.2 x10e3 /uL 3.4-10 .8 Not Available [facility] ([facility]) [address] [facility], [place], [address], 08/24/2023 13:08:38 08/18/19 24 08/19/2023 CBC WITH DIFFE RENTI AL/PL ATELE T RBC 4.37 x10e6 /uL 3.77-5 .28 Not Available [facility] ([facility]) [address] [facility], [place], [address], 08/24/2023 13:08:38 08/18/19 24 08/19/2023 CBC WITH DIFFE RENTI AL/PL ATELE T hemoglobin 13.3 g/dL 11.1-1 5.9 Not Available [facility] ([facility]) [address] [facility], [place], [address], 08/24/2023 13:08:38 08/18/19 24 08/19/2023 CBC WITH DIFFE RENTI AL/PL ATELE T hematocrit 40.8 % 34.0-4 6.6 Not Available [facility] ([facility]) [address] [facility], [place], [address], 08/24/2023 13:08:38 08/18/19 24 08/19/2023 CBC WITH DIFFE RENTI AL/PL ATELE T MCV 93 fL 79-97 Not Available [facility] ([facility]) [address] [facility], [place], [address], 08/24/2023 13:08:38 08/18/19 24 08/19/2023 CBC WITH DIFFE RENTI AL/PL ATELE T MCH 30.4 pg 26.6-3 3.0 Not Available [facility] ([facility]) [address] [facility], [place], [address], 08/24/2023 13:08:38 08/18/19 24 08/19/2023 CBC WITH DIFFE RENTI AL/PL ATELE T MCHC 32.6 g/dL 31.5-3 5.7 Not Available [facility] ([facility]) [address] [facility], [place], [address], 08/24/2023 13:08:38 08/18/19 24 08/19/2023 CBC WITH DIFFE RENTI AL/PL ATELE T RDW 12.4 % 11.7-1 5.4 Not Available [facility] ([facility]) [address] [facility], [place], [address], 08/24/2023 13:08:38 08/18/19 24 08/19/2023 CBC WITH DIFFE RENTI AL/PL ATELE T platelets 305 x10e3 /uL 150-45 0 Not Available [facility] ([facility]) [address] [facility], [place], [address], 08/24/2023 13:08:38 08/18/19 24 08/19/2023 CBC WITH DIFFE RENTI AL/PL ATELE T neutrophils 68 % notest ab. Not Available [facility] ([facility]) [address] [facility], [place], [address], 08/24/2023 13:08:38 08/18/19 24 08/19/2023 CBC WITH DIFFE RENTI AL/PL ATELE T lymphs 22 % notest ab. Not Available [facility] ([facility]) [address] [facility], [place], [address], 08/24/2023 13:08:38 08/18/19 24 08/19/2023 CBC WITH DIFFE RENTI AL/PL ATELE T monocytes 8 % notest ab. Not Available [facility] ([facility]) [address] [facility], [place], [address], 08/24/2023 13:08:38 08/18/19 24 08/19/2023 CBC WITH DIFFE RENTI AL/PL ATELE T eos 1 % notest ab. Not Available [facility] ([facility]) [address] [facility], [place], [address], 08/24/2023 13:08:38 08/18/19 24 08/19/2023 CBC WITH DIFFE RENTI AL/PL ATELE T basos 1 % notest ab. Not Available [facility] ([facility]) [address] [facility], [place], [address], 08/24/2023 13:08:38 08/18/19 24 08/19/2023 CBC WITH DIFFE RENTI AL/PL ATELE T neutrophils (absolute) 4.9 x10e3 /uL 1.4-7. 0 Not Available [facility] ([facility]) [address] [place], [address], 08/24/2023 13:08:38 08/18/19 24 08/19/2023 CBC WITH DIFFE RENTI AL/PL ATELE T lymphs (absolute) 1.6 x10e3 /uL 0.7-3. 1 Not Available [facility] ([facility]) [address] [place], [address], 08/24/2023 13:08:38 08/18/19 24 08/19/2023 CBC WITH DIFFE RENTI AL/PL ATELE T monocytes(ab solute) 0.6 x10e3 /uL 0.1-0. 9 Not Available [facility] ([facility]) [address] [place], [address], 08/24/2023 13:08:38 08/18/19 24 08/19/2023 CBC WITH DIFFE RENTI AL/PL ATELE T eos (absolute) 0.1 x10e3 /uL 0.0-0. 4 Not Available [facility] ([facility]) [address] [facility], [place], [address], 08/24/2023 13:08:38 08/18/19 24 08/19/2023 CBC WITH DIFFE RENTI AL/PL ATELE T baso (absolute) 0.1 x10e3 /uL 0.0-0. 2 Not Available [facility] ([facility]) [address] [facility], [place], [address], 08/24/2023 13:08:38 08/18/19 24 08/19/2023 CBC WITH DIFFE RENTI AL/PL ATELE T immature granulocytes 0 % notest ab. Not Available [facility] ([facility]) [address] [facility], [place], [address], 08/24/2023 13:08:38 08/18/19 24 08/19/2023 CBC WITH DIFFE RENTI AL/PL ATELE T immature grans (abs) 0.0 x10e3 /uL 0.0-0. 1 Not Available [facility] ([facility]) [address] [facility], [place], [address], 08/24/2023 13:08:38 11/27/19 24 11/26/2023 CT, abdom en, w/o contr ast No observ ation record ed. [facility] [address], [place], [address], 11/27/2023 18:07:31 Result Notes None recorded. Problems Name Problem SNOMED Code Status Onset Date Resolution Date Notes Provider Name and Address Organization Details Recorded Time Urinary incontinence 136051645 Active 2017 RJ Tineo - [facility] 8 08:08:44 Chronic back pain 624615689 Active 2017 Elicia finch, [place] - [facility] 8 08:18:17 Excessive sweating 67971155 Active 2017 [place] [facility] 8 08:18:18 Migraine without aura 47645656 Active 2017 [place] [facility] 8 08:18:20 Adult health examination Active 2017 [place] [facility] 8 08:18:40 Body mass index 25-29 - overweight 634704703 Active 2017 E[place] [facility] 8 08:19:28 Intermittent palpitations 695390561 Active 2018 Elic[place] [facility] 9 13:29:59 Folliculitis 09141294 Active 2018 Elicia [place]ch[place] - [facility] 9 13:33:34 Family history of cancer of colon 377134117 Active 2018 CHARLY HARVEY Attn: Ketty hutson,[address] [place], [address], [place] - [facility] 4 19:19:11 Chronic low back pain 037397842 Active 2023 CHARLY HARVEY Attn: Ketty hutson,[address] [place], [address], [place] [facility] 4 19:19:04 Microscopic colitis 525069638 Active 2023 CHARLY HARVEY Attn: Ketty g,[address] [place], [address], [place] [facility] 4 19:19:18 Migraine 16012346 Active 2023 CHARLY HARVEY Attn: Ketty g,[address] [place], [address], [place] [facility] 4 19:19:14 Tachycardia 6661882 Active 2023 CHARLY HARVEY Attn: Ketty hutson,[address] [facility], [place], [address], [facility] 4 19:19:23 Problem Notes None recorded. Procedures Surgical History Date Name Laterality Status Provider Name and Address Organization Details Recorded Time 3 Date of Last Pap Smear completed Urmila Sawant RN [facility] 06/02/2022 16:12:56 2 Colonoscopy with biopsy completed MIGUELITO Dan [facility] 04/03/2021 10:33:31 1 Most Recent Mammogram completed Urmila Sawant RN [facility] 11/01/2020 15:02:48 Back Surgery completed Urmila Sawant RN [facility] 07/11/2014 15:18:42 Imaging Results Imaging Date Name Status LastModified by Organiz ation Details LastModified Time 11/26/2023 CT, abdomen, w/o contrast completed [facility] 2022 Juan Luis Ann [facility], [place], [address], 11/27/2023 18:07:31 Procedure Notes None recorded. Medical Equipment None Reported. Allergies Allergen ID Allergen Name Allergen Category Reaction Reaction Severity Criticality Documentation Date Start Date Code Code System Note Provider Name and Address Organization Details Recorded Time 73364 codeine medicatio n Not available Not available Not available 07/11/2014 2670 RxNorm Not Available Not Available Not Available 44357 Flagyl medicatio n Not available Not available Not available 07/11/2014 13962 6 RxNorm Not Available Not Available Not Available 34324 Zofran medicatio n Not available Not available Not available 07/11/2014 96595 RxNorm Not Available Not Available Not Available Medications Name Sig Start Date Stop Date Status Note LastModified by Organization Details LastModified Time amitriptyli ne hcl 25 mg tabs 12/18 completed Not Available Not Available Not Available sumatriptan tab 50mgsumatri ptan succinate 12/18 completed Not Available Not Available Not Available promethazin e hcl 25 mg tabs 12/18 completed Not Available Not Available Not Available oxycodone tab 30mgoxycodo ne hcl 12/18 completed Not Available Not Available Not Available viibryd tab 40mgviibryd 12/18 completed Not Available Not Available Not Available fentanyl 100 mcg/hr pt72 12/18 completed Not Available Not Available Not Available diazepam tab 10mgdiazepa m 12/18 completed Not Available Not Available Not Available but/apap/ca f capbutalbit al/apap/caf feine 03/01 completed Not Available Not Available Not Available amitriptyli n tab 25mgamitrip tyline hcl 12/18 completed Not Available Not Available Not Available alprazolam tab 0.5mgalpraz olam 12/18 completed Not Available Not Available Not Available but/apap/ca f tab 12/18 completed Not Available Not Available Not Available promethazin e tab 25mgprometh azine hcl 12/18 completed Not Available Not Available Not Available omeprazole 40 mg cpdr 12/18 completed Not Available Not Available Not Available sumatriptan succinate 50 mg tabs 12/18 completed Not Available Not Available Not Available alprazolam 0.5 mg tabs 12/18 completed Not Available Not Available Not Available medroxypr ac inj 150mg/mlmed roxyprogest erone acetate 12/29 completed Not Available Not Available Not Available carisoprodo l tab 350mgcariso prodol 12/18 completed Not Available Not Available Not Available carisoprodo l 350 mg tabs 12/18 completed Not Available Not Available Not Available azithromyci n tab 500mgazithr omycin 12/18 completed Not Available Not Available Not Available lorazepam tab 0.5mgloraze bianca 12/18 completed Not Available Not Available Not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 HNPP. We will evaluate APC gene for FAP and refer to GI for colonoscop y. [id number] MD Felix Hummel 14 IM [address] [facility] [place] [address] 03/01/2020 14:57:45 03/02/2020 13:47:39 Migraine 30980144 G43.909 Under care of service desk manager 973949216 Z76.89 Under care of ship painter helper 632069859 Z76.89 Influenza immunization advised 770414779 Z71.89 [id number] MD Felix Bob 14 OB [address] [facility] [place] [address] 03/06/2020 15:36:21 03/07/2020 12:12:48 Gynecologic examination 49893346 Z01.419 Screening for malignant neoplasm of breast 076912533 Z12.39 Contracept ion care management 566017221 Z30.9 [id number] MD Felix Hummel 14 IM [address] [facility] [place] [address] 01/22/2021 14:45:16 01/24/2021 07:21:47 Influenza immunization advised 732537821 Z71.89 Overweight 309645398 E66 .3 She regained wt while on vacation but has begun to lose wt once again Unintentio nal weight loss 882373709 R63.4 Workup to date has been unremarkab le--a referral to a GI specialist is the next step in this workup Family his tory of cancer of colon 199531121 Z80.0 her mother was dx'd with colon CA Migraine 87785283 G43.90 9 Burn of skin 367384067 T 30.0 Retention of urine 30374 4002 R33.9 [id number] MD Felix Bob 14 OB [address] [facility] [place] [address] 05/14/2021 15:08:43 05/15/2021 07:53:20 Gynecologic examination 51575134 Z01.419 Screening for malignant neoplasm of breast 778619988 Z12.39 Contracept ion care management 687599086 Z30.9 Candidiasis of vagina 72 264569 B37.3 [id number] MD Felix Bob 14 OB [address] [facility] [place] [address] 05/27/2022 13:59:33 05/29/2022 10:34:54 Overweight 720048847 E66.3 Gynecologi c examination 19238430 Z01.419 Screening for malignant neoplasm of breast 955878655 Z12.39 Contracept ion care management 211082963 Z30.9 [id number] MD Felix Bob 14 OB [address] [facility] [place] [address] 08/08/2022 14:34:17 08/16/2022 09:57:37 Cyst of left Bartholin's gland duct 2552697083 1756377 N75.0 [id number] MD Felix Hummel 14 IM [address] [facility] [place] [address] 09/08/2022 11:24:28 09/11/2022 13:26:35 Family history of cancer of colon 894067288 Z80.0 her mother was dx'd with colon CA Migraine 15076465 G43.80 9 Nausea and vomiting 1691999 R11.2 Diarrhea 09290107 R19.7 Under care of ship painter helper 430129559 Z76.89 pt describes chronic pain Body mass index 25-29 - overweight 935357265 Z68.25 [id number] MD Felix Hummel 14 IM [address] [facility] [place] [address] 03/24/2023 12:39:48 03/30/2023 09:23:18 Body mass index 20-24 - normal 957745319 Z68.24 Malaise and fatigue 2717 81553 R53.81 Edema of l ower extremity 133877030 R60.0 Benign ess ential hypertension 2026582 I10 pt states that her blood pressure is elevated today because of her pain Under care of ship painter helper 643104933 Z76.89 pt is on several medication s prescribed by this specialist [id number] MD Felix Bob 14 OB [address] [facility] [place] [address] 06/04/2023 14:58:48 06/05/2023 12:25:58 Gynecologic examination 66079173 Z01.419 Screening for malignant neoplasm of breast 689186445 Z12.39 Contracept ion care management 705063533 Z30.9 [id number] CHARLY HARVEY [facility] [address] [place] [address] 07/31/2023 14:22:52 07/31/2023 15:06:56 Loss of hair 264844656 L65.9 x2 monthsexce ssive hair losstried minoxidil and broke outfollowi ng with Derm, told testostero ne levels are non-existe nt, has punch biopsy of scalp next weekprevio us PCP- ESR, CBC, CMP, TSH, a1c- all normalrefe r to Endocrine Difficulty sleeping 3013 88141 Z72.820 x4 yrscan fall asleep, can't stay asleeptake s benadryl, muscle relaxerstr ial trazodone Migraine 18879775 G43.90 9 on topamax, sumatripta n Microscopic colitis 2357 85191 K52.839 on budesonide PRNfollows with GIdiarrhea onset in 2020, mom with colon cancer 66last colonoscop y 2021 Chronic low back pain 27 9948863 M54.50 lumbarfoll ows with PMon celebrex, morphine, oxycodone Tachycardia 8351727 R00. 0 on propranolo l, follows with Cardio Depression screening 171 584995 Z13.31 PHQ 3 [id number] Connie Elias MA [facility] [address] [place] [address] 08/18/2023 12:27:32 08/18/2023 13:00:39 [id number] CHARLY HARVEY [facility] [address] [place] [address] 09/09/2023 15:36:44 09/09/2023 16:13:06 Loss of hair 827574416 L65.9 09/09/23: cannot see Endocrine until 02/2024stat es that her hair is growing back but still falling outhas upcoming hair biopsy in 3 wks 07/31/23:x2 monthsexce ssive hair losstried minoxidil and broke outfollowi ng with Derm, told testostero ne levels are non-existe nt, has punch biopsy of scalp next weekprevio us PCP- ESR, CBC, CMP, TSH, a1c- all normalrefe r to Endocrine Adrenal co rtical hypofunction 056414776 E27.40 low DHEA sulfate levelreque sting blood work/imagi ng for adrenal glandsorde red US adrenal Nausea 600825071 R11.0 requesting refill promethazi ne for nausea Chalazion of lower eyelid of left eye 8282466159 26214 H00.15 x2 wksc/o bump to inside of L eye and swellingno vision changesPEx - chalazion to L inner lower eye lidtrial erythromyc in for eye irritation Skin lesion 22316180 L98 .9 to lower back and arms x2 moopen red lesions, varying stages of dryness, clear fluidtrial triamcinol one [id number] CHARLY HARVEY [facility] [address] [place] [address] 04/27/2024 09:21:42 04/27/2024 10:00:15 Allergic rhinitis 39061296 J30.9 has runny nose only with being active, has tried every allergy medicine w/o reliefx3 yrstrial singulair Screening for malignant neoplasm of breast 805627862 Z12.39 states that she will schedule Screening for malignant neoplasm of cervix 451552275 Z12.4 due for pap Nov 2024follow s with Dr. Tesfaye in [place] Screening for malignant neoplasm of colon 695491252 Z12.11 due 2026had one 02/2021 and was told every 5 yrs Tachycardia 8687659 R00. 0 on propranolo l, follows with Cardiorequ esting PCP to take over script Loss of hair 243048615 L 65.9 04/28/24: following with Derm and Endocrine 09/29/23: new derm referral 09/09/23: cannot see Endocrine until 02/2024stat es that her hair is growing back but still falling outhas upcoming hair biopsy in 3 wks 07/31/23:x2 monthsexce ssive hair losstried minoxidil and broke outfollowi ng with Derm, told testostero ne levels are non-existe nt, has punch biopsy of scalp next weekprevio us PCP- ESR, CBC, CMP, TSH, a1c- all normalrefe r to Endocrine Overweight 030950557 E66 .3 Depression screening 171 625989 Z13.31 PHQ 0 Health Concerns Section Related Observation LastModified by Organization Detai ls LastModified Time None Recorded Concern Status LastModified by Organization Details LastModified Time None Recorded Advance Directives Directive N: Payers Encounter Date Sequence Insurance Name Policy Number Policy Fong Covered Member ID Fong Member ID Guarantor Name 06/04/2023 2 [employer] - PRIME (MEDICARE REPLACEMENT/A DVANTAGE - HMO) [id number] Carlos Nicole [id number] Carlos Nicole 07/31/2023 2 [employer] - [employer]IME (MEDICARE REPLACEMENT/A DVANTAGE - HMO) [id number] Carlos Nicole [id number] Carlos Nicole 08/18/2023 2 [employer] - [employer]IME (MEDICARE REPLACEMENT/A DVANTAGE - HMO) [id number] Carlos Nicole [id number] Carlos Nicole 09/09/2023 2 [employer] - PRIME (MEDICARE REPLACEMENT/A DVANTAGE - HMO) [id number] Carlos Nicole [id number] Carlos Nicole 04/27/2024 2 [employer] - PRIME (MEDICARE REPLACEMENT/A DVANTAGE - HMO) [id number] Carlos Nicole [id number] Carlos Nicole 04/27/2024 1 [facility] Carlos Nicole [id number] Carlos Nicole Notes Date Note Type Note Provider Name and Address Organization Details Recorded Time 06/04/2023 text/html Annual GYNReport ed bypatient.Menstrual cycle:no period on depo Urinary symptoms:No hematuria; No incontinence Vulva:No genital lesion Vagina:Normal vaginal discharge Breast:No breast pain; No breast lump; No nipple discharge Current Contraception:Intra muscular contraceptive injection Sexual complaints:No sexual complaints; No pain during intercourse; Normal libido Menopausal Symptoms:No menopausal symptoms; Normal vaginal lubrication Psychological symptoms:No depression; No anxiety; No PMDD Discussed her feelings regarding extra discharge as usualHas tested negative for everything multiple times over the years. We referred her to C, but her insurance wouldnt cover it. More Tesfaye MD Attn: Accounting,[address] [facility], [place], [address], [facility] 06/04/2023 15:28:47 07/31/2023 text/html Pt presents with hair loss. Reports for the past 2 months she has lost excessive amts of hair worse at her temples. She tried minoxidil and broke out on her scalp and neck. Pt saw dermatology who rec'd she see Endocrine. Previous PCP did lab work, told all results were normal. C/o fatigue and intermittent leg swelling when hair loss onset. CHARLY HARVEY Attn: Accounting,[address] [facility], [place], [address], [facility] 08/02/2023 19:20:31 09/09/2023 text/html Pt presents for L eye swelling/irritation and test result f/u. C/o swelling and bump to the inside of her L eye. Denies vision changes. States that she has been applying warm compresses. Pt has hair biopsy scheduled in 3 wks. Reports that she is unable to see Endocrine until February 2024. She is concerned about her adrenal glands due to low DHEA level. CHARLY HARVEY Attn: Accounting,[address] [place], [address], [facility] 09/11/2023 09:59:19 04/27/2024 text/html Pt presents for 6 mo f/u. She is established with [facility] in [place]. She is on topical clinda, oral doxycycline and spironolactone. Pt established with Endocrine 6 wks ago, completed blood work and told it was normal. She has upcoming cortisol test. C/o weight gain despite no change in lifestyle or eating habits. 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 CHARLY HARVEY Attn: Accounting,[address] [place], [address], [facility] 04/28/2024 10:20:38 OBGyn Episode No OBEpisode recorded.
--- OUTSIDE RECORDS SUMMARY | 2024-06-02 14:21 | XMS_ITS | Continuity of Care Document ---
Author Organization [facility] Address [address] [place] [address] Phone Care Team Providers Care Rn Clinical Coordinator Name Role Phone Susannah Au Unavailable Unavailable Allergies, Adverse Reactions, Alerts Substance Reaction Status Criticality HYDROCODONE BITARTRATE Active No In formation METRONIDAZOLE HCL Active No Informa tion metronidazole Active No Information ONDANSETRON HCL Active No Informati on CODEINE PHOSPHATE Active No Informa tion Medications Medication Instructions Dosage Effective Dates (start - stop) Status Comments Nucynta 50 mg tablet take 1 tablet by oral route every 4 - 6 hours as needed 50 MG - Active max 4 per day Procedures Procedure Date Ankle Brace, ASO Office/outpatient visit,est, mod 2013 Office/outpatient visit,est, mod 2013 Nerve Conduction Studies; 3-4 4 EMG, each extrem w/nerve conduction; com plete Office/outpatient visit,est, mod 2013 Independent Medical Examination PRASANTH Advance Directives Directive Yes / No Effective Date File Name No Information Encounters Encounter Description Practice Location Reason(s) For Visit Diagnoses Date Provider Providers Copied on Encounter [facility], [address] [facility] [facility], [place], [place], [id number], tel:[phone] [facility] No Information 4 China Davalos. [address] [facility], [address], [place], [place], [id number] , [place]. tel: [phone] [facility], [address] [address], [place], [place], [id number], [place] [phone] [facility] No Information Nov-0 4 Humza Austin. [address] [place] [place] [address], [place], [place], [id number] , [place]. tel: [phone] [facility], [address] [address], [place], [place], [id number], [place] tel:[phone] [facility] Foot numbnessLUMBOSACR AL NEURITIS NOS Sep- 4 Humza Avila. [address] [address], [place], [place], [id number] , [place]. tel: [phone] Office/outpa tient visit,est, [facility], [address], [id number], [place] [phone] [facility] LUMBOSACRAL NEURITIS NOS Sep-0 4 Humza Avila. [address] [facility], [place] [address], [place], [place], [id number] , [place]. tel: [phone] [facility], [address], [id number], [place] [phone] [facility] LUMBOSACRAL NEURITIS NOSLUMBAGO Nikolay-0 2 4 Humza Avila. [address] [facility], [place] [address], [place], [place], [id number] , [place]. tel: [phone] Office/outpa tient visit,est, mod [facility], [address], [id number], [place] [phone] [facility] LUMBOSACRAL NEURITIS NOS Reynaldo- 4 Humza Avila. [address], [id number] , [place]. tel: [phone] [facility], [address], [id number], tel:[phone] [facility] left lower leg pain (chief complaint) LUMBOSACRAL NEURITIS NOSLUMBAGO 4 Christian Hollis. [address], [id number] , . tel:[phone] Referring Provider: Shakira Stovall, [address] [place] [address], [place], [place], [address] [place] [address] . tel:[phone] Office/outpa tient visit,est, mod [facility], [address] [place] [address], [id number], tel:[phone] [facility] lumbar spine (chief complaint) Thoracic or lumbosacral neuritis or radiculitis, unspecifiedLumbag o 4 Humza Avila. [address] [address], [place], [place], [id number] , [place]. tel:[phone] Independent Medical Examination PRASANTH [facility], [address], [id number], tel:[phone] [facility] No Information 4 Humza Avila. [address] [place] [address], [id number] , . tel:[phone] Family History Family Member Type Diagnosis Age At Onset No Information Immunizations Vaccine Date Status Comments Influenza, seasonal, injecta ble (flu vaccine tv sp (5 yr+) 45 mcg (15 mcg x 3)/0.5 mL IM susp) administered Source: Other Provider Payers Payer name Insurance type Covered green party ID Authorhalliea tibrenna(s) Lionel Main [id number] Social History Type Description Quantity Date Captured Comments Sex Female Smoking Status No Information Chief Complaint And Reason For Visit No Information Reason For Referral Reason For Referral No Information Plan Of Treatment Date Type Action Status Referral Ordered: EMG NCS LT Lower Extremity Appointment date/timeframe: 08/03/2013 ordered History Of Present Illness Encounter Date Complaint History Of Prese nt Illness left lower leg pain Location: le ft. The pain is aching, burning and sharp. The pain is aggravated by sitting and walking. Additional information: Left lower extremity EMG. lumbar spine Ms Nicole is a 2 4 year old female who complains of lumbar spine. She presents with pain. Functional Status Date Functional Assessmen t No Information Instructions Date Instruction Additional Infor mation No Information Assessments Type Assessment Date No Information Patient Care Teams Name Effective Dates (start - stop) Status Members No Information
--- OUTSIDE RECORDS SUMMARY | 2024-06-02 14:21 | XMS_ITS | Clinical Summary ---
Author Organization [facility] Address [address] [place] [address] Care Team Providers Care Biblical Studies Professor Name Role Phone Elicia Long MD Primary Care Provider [phone] Source Comments [facility],non-owned Affiliates and Associated Physician Practices is amultiple site organization consisting of ambulatory clinics and hospital sitesin [place], [place], [place] and [place]. This disclosure is being madepursuant to the Care Everywhere program and may not contain all information available regarding this patient. Last updated 17.[facility] Allergies Active Allergy Reactions Criticality Noted Date Comments Codeine Unknown 12/17/2012 Hydrocodone Vomiting 11/02/2016 Metronidazole Unknown 12/17/2012 Ondansetron Unknown Pregabalin Swelling 11/02/2016 Medications * Be aware that medications may not be up to date on this document. Alwaysverify current medications with the patient. SUMAtriptan Succinate (IMITREX PO) Active medroxyPROGESTE Davey (DEPO-PROVERA) 150 MG/ML vial Inject 150 mg into muscle Active BUTALBITAL-APAP -CAFFEINE PO Active promethazine (PHENERGAN) 25 MG tablet Take 25 mg by mouth every 6 hours as needed for Nausea/Vomit ing Active tiZANidine HCl 4 MG Active amitriptyline (ELAVIL) 50 MG tablet Take 50 mg by mouth at bedtime Active oxyCODONE immediate release (OXECTA) 7.5 MG tablet Take 7.5 mg by mouth as needed Active propranolol CR 24hr (INDERAL LA) 60 MG capsule Take 1 capsule by mouth once daily 30 capsule 11 01/10/2020 Active Active Problems Problem Noted Date Diagnosed Date Palpitations 03/01/2019 Migraine without aura 03/01/2019 Family History Medical History Relation Name Comments Other - Cardiac Father atherosclero sis Relation Name Status Comments Father Social History Tobacco Use Types Packs/Day Years Used Date Smoking Tobacco: Former Comments No Sex and Gender Information Value Date Recorded Sex Assigned at Not on file 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 Gender Identity Not on file Sexual Orientation Not on file Last Filed Vital Signs Vital Sign Reading Time Taken Comments Blood Pressure 158/115 05/12/2019 1:38 PM CDT Pulse 97 05/12/2019 1:38 PM CDT Temperature 37.2 C (99 F) 11/21/2017 3:35 PM CDT Respiratory Rate 16 11/21/2017 3:35 PM CDT Oxygen Saturation 98% 11/21/2017 3:35 PM CDT Inhaled Oxygen Concentration - - Weight 81.2 kg (179 lb) 05/12/2019 1:38 PM CDT Height 167.6 cm (5' 6 ) 05/12/2019 1:38 PM CDT Body Mass Index 28.89 05/12/2019 1:38 PM CDT Plan of Treatment Health Maintenance Due Date Last Done Comments COLOGUARD (AGES 45-75) - COL ON CA SCREENING 1979 COLON MONITORING 1979 COLONOSCOPY - COLON CA SCREENING 1979 CT COLONOGRAPHY - COLON CA SCREENING 1979 Colorectal Cancer Screening 1979 FIT - COLON CA SCREENING 1979 FLEX SIG - COLON CA SCREENING 1979 LIPID TESTING 1979 MAMMOGRAM 1979 MEDICARE AWV 12 MONTHS 1979 PAP SMEAR 1979 HIV SCREENING 05/06/1994 HEPATITIS C SCREENING 05/02/1997 DTAP/TDAP/TD VACCINES (1 - Tdap) 05/06/1998 HEPATITIS B VACCINE (1 of 3 - 19+ 3-dose series) 05/06/1998 SCREENING FOR DIABETES 05/12/2019 COVID-19 VACCINE (1 - 2023-2 5 season) 2023 DEPRESSION SCREENING 02/17/2024 INFLUENZA VACCINE (Season Ended) 2024 11/17/19 13 ZOSTER VACCINE (1 of 2) 05/06/2029 HIB VACCINE Aged Out No longer eligi ble based on patient's age to complete this topic HPV VACCINE Aged Out No longer eligi ble based on patient's age to complete this topic MENINGOCOCCAL (Group B) VACC INE SHARED DECISION-MAKING Aged Out No longer eligibl e based on patient's age to complete this topic MENINGOCOCCAL GROUPS A/C/Y/W VACCINE Aged Out No longer eligible b ased on patient's age to complete this topic PNEUMOCOCCAL VACCINE Aged Out No long er eligible based on patient's age to complete this topic Insurance MEDICARE [facility] Care Teams Biblical Studies Professor Relationship Specialty Start Date End Date Elicia Long MD [address] [place] [address] PCP - General 06/10/22
--- OUTSIDE RECORDS SUMMARY | 2024-06-02 14:21 | XMS_ITS | Clinical Summary ---
Author Organization [facility] Address [address] [place] [address] Phone Care Team Providers Care Welding Process Specialist Name Role Phone Celina Modi APRN, CNP Primary Care Provide r Allergies Active Allergy Reactions Criticality Noted Date Comments Codeine Vomiting 11/02/2016 Metronidazole Hives 11/02/2016 Hydrocodone Vomiting 11/02/2016 Pregabalin Swelling 11/02/2016 Ondansetron Hcl Hives 11/02/2016 Medications traMADol (ULTRAM) 50 MG Tablet Take 50 mg by mouth every 6 hours as needed. Active ALPRAZolam (XANAX) 1 MG Tablet Take 1 mg by mouth 2 times daily. Active metoclopramide (REGLAN) 10 MG Tablet Take 10 mg by mouth. PRN for migraines Active butalbital-aceta minophen-caffein e-codeine (FIORICET/CODEIN E) 08-855-44-30 MG Capsule Take 1 Cap by mouth every 4 hours as needed for Migraine. Active oxyCODONE (OXYCONTIN) 80 MG Tablet Extended Release 12 hour Abuse-Deterrent Take 80 mg by mouth every 8 hours. 12/15/2013 Active tiZANidine (ZANAFLEX) 4 MG Tablet Take 4 mg by mouth 3 times daily as needed. 07/15/2017 Active esomeprazole (NEXIUM) 20 MG CAPSULE DELAYED RELEASE Take 40 mg by mouth daily. Active topiramate (TOPAMAX) 25 MG Tablet Take 50 mg by mouth 2 times daily. Active SUMAtriptan (IMITREX) 50 MG Tablet Take 50 mg by mouth once as needed. Take 1 tablet by mouth once daily as needed. Active Family History Medical History Relation Name Comments Bladder cancer Father Relation Name Status Comments Father Social History Tobacco Use Types Packs/Day Years Used Date Smoking Tobacco: Former Smokeless Tobacco: Never Tobacco Cessation:Counseling Given: No Alcohol Use Standard Drinks/Week Comments No 0 (1 standard drink = 0.6 oz pur e alcohol) Comments No Sex and Gender Information Value Date Recorded Sex Assigned at Not on file Legal Sex Female 7:30 PM CDT Gender Identity Not on file Sexual Orientation Not on file Last Filed Vital Signs Vital Sign Reading Time Taken Comments Blood Pressure 121/77 07/26/2017 8:30 PM CDT Pulse 105 07/26/2017 8:30 PM CDT Temperature 36.7 C (98 F) 07/26/2017 5:25 PM CDT Respiratory Rate 20 07/26/2017 5:25 PM CDT Oxygen Saturation 100% 07/26/2017 8:30 PM CDT Inhaled Oxygen Concentration - - Weight 72.6 kg (160 lb) 07/26/2017 5:25 PM CDT Height 167.6 cm (5' 6 ) 07/26/2017 5:25 PM CDT Body Mass Index 25.82 07/26/2017 5:25 PM CDT Plan of Treatment Health Maintenance Due Date Last Done Comments Hepatitis C Virus (HCV) Screening 1980 TdaP Immunization 1980 Hepatitis B Immunization (1 of 3 - 19+ 3-dose series) 05/06/1998 Influenza Immunization (#1) 2023 SARS-COV-2 Immunization ( season) 2023 06/12/2020, 05/20/2020 Respiratory Syncytial Virus (RSV) Immunization (Adult) (1 - 1-dose 75+ series) 05/06/2054 DTaP/Tdap/Td Immunization Discontinued 1994, 09/18/1984, 12/13/1980, Additional history exists Meningococcal Immunization (ACWY) Aged Out No longer eligible based on patient's age to complete this topic Pneumococcal Immunization Combined Aged Out No longer eligible based on patient's age to complete this topic Rotavirus Immunization Aged Out No lo nger eligible based on patient's age to complete this topic Insurance MEDICARE C AETNA Care Teams Welding Process Specialist Relationship Specialty Start Date End Date Celina Modi APRN, FLOOR BROKER [address] [place] [address] PCP - General Family Medicine 02/01/20
--- OUTSIDE RECORDS SUMMARY | 2024-06-02 14:21 | XMS_ITS | Data Portability ---
Author Organization [place] [facility] [employer] [facility] , [facility] [place] Address [address] [place] [address] Assessment Encounter Date Assessment Date Assessment LastModified by Organization Details LastModified Time 04/05/2024 04/05/2024 allergic rhinitis vs URI vs acute maxillary sinusitis vs COVID - 19 CDC guidelines discussed with the patient. Antibiotic stewardship discussed with the patient. The patient agrees with the diagnosis and treatment plan. The patient understands the limitations of telemedicine. The patient will reconnect with telemedicine or pursue an in person examination if symptoms do not resolve, improve, or new symptoms develop. [email or web address] Not available 04/06/2024 19:25:21 Plan of Treatment Reminders Order Date Submit Date Provider Last Modified By Organization Details Last Modified Time Details Appointments None recorded. Lab None recorded. Referral None recorded. Procedures None recorded. Surgeries None recorded. Imaging None recorded. Medication Orders amoxicillin 875 mg-potassiu m clavulanate 125 mg tablet 2024 025 [facility]Pharmacy #[id number], [address] [facility], [place], [address], 11:07:51 Patient TargetsNo targets recorded. Patient Instructions Encounter Date Encounter Id Patient Instructions Last Modified By Organization Details Last Modified Time 04/05/2024 [id number] Acute Sinusitis: Care Instructions [email or web address] Not available 04/05/2024 11:07:49 Reason for Referral None Reported. Problems Name Problem SNOMED Code Status Onset Date Resolution Date Notes Provider Name and Address Organization Details Recorded Time Alopecia 25748004 Active 2024 Johnathan Angeles, DO 1 [facility] [address], [place], [address], [employer] 10:59:15 Migraine 46316598 Active 2024 Johnathan Angeles, DO 1 [facility] [address], [place], [address], [place] [facility] [facility] 5 10:59:21 Cardiac arrhythmia 559664162 Active 2024 Johnathan Angeles DO 1 [facility] [address], [place], [place], [address] [place] [address], [place] [facility] 5 10:59:59 Seasonal allergy 196631698 Active 2024 Johnathan Angeles, 1 [facility] [address], [place], [place], [address] [place] [address], [place] [facility] 5 11:00:11 Problem Notes None recorded. Medical Equipment None Reported. Allergies Allergen ID Allergen Name Allergen Category Reaction Reaction Severity Criticality Documentation Date Start Date Code Code System Note Provider Name and Address Organization Details Recorded Time 783410 Flagyl medicatio n Not available Not available Not available 04/05/2024 60554 6 RxNorm Not Available Included [facility] 5 09:34:52 407059 Zofran medicatio n Not available Not available Not available 04/05/2024 23848 RxNorm Not Available Included [facility] 5 09:34:52 066813 Lyrica medicatio n Not available Not available Not available 04/05/2024 43369 1 RxNorm Not Available Included [facility] 5 09:34:52 975492 honey bee venom medicatio n Not available Not available Not available 04/05/2024 24191 7 RxNorm Not Available Included [facility] 5 09:34:52 Medications Name Sig Start Date Stop Date Status Note LastModified by Organization Details LastModified Time hydrocodon e 10 mg-acetami nophen 325 mg tablet active ADDED BY PATIENT: PRN Not Available Not Available Not Available Celebrex 100 mg capsule active ADDED BY PATIENT: Not Available Not Available Not Available propranolo l ER 80 mg capsule,24 hr,extende d release active ADDED BY PATIENT: Not Available Not Available Not Available dicyclomin e 10 mg capsule active ADDED BY PATIENT: Not Available Not Available Not Available amoxicilli n 875 mg-potassi um clavulanat e 125 mg tablet Take 1 tablet every 12 hours by oral route as directed for 10 days. 2024 active Not Available Not Available Not Avai lable Topamax 100 mg tablet active ADDED BY PATIENT: Not Available Not Available Not Available tizanidine 4 mg capsule active ADDED BY PATIENT: Bedtime Not Available Not Available Not Available sumatripta n active ADDED BY PATIENT: 50mg PRN Migraines Not Available Not Available Not Available amitriptyl ine active ADDED BY PATIENT: 100mg bedtime migraine preventio n Not Available Not Available Not Available Benadryl active Not Available Not Avai lable Not Available spironolac tone active ADDED BY PATIENT: 50mg bedtime Not Available Not Available Not Available Depo-Prove ra active Not Available Not Available Not Available Mucinex active Not Available Not Avail able Not Available Vitals None Recorded Social History Question Answer Notes LastModified by Organizat ion Details LastModified Time Tobacco Smoking Status Former Smoker Johnathan Angeles DO [address] [place] [address] [address], [place], [address], [facility] 04/05/2024 11:01:12 What Is Your Level Of Alcohol Consumption? Occasional [email or web address] Information not available 04/05/2024 Do You Use Any Illicit Or Recreational Drugs? No [email or web address] Information not available 04/05/2024 How Many Years Have You Smoked Tobacco? 20 [email or web address] Information not available 04/05/2024 Sex: Unknown Functional Status None recorded. Mental Status None recorded. Family History Nothing Reported. Medical History No medical history recorded. Gynecological HistoryNo gynecological history recorded. Obstetrics History GPAL:G 0 P 0 0 0 0 Past Encounters Encounter ID Performer Location Encounter Start Date Encounter Closed Date Diagnosis/Indication Diagnosis SNOMED-CT Code Diagnosis ICD10 Code Diagnosis Note [id number] Johnathan Angeles DO [facility] [address] [place] [address] 04/05/2024 10:48:23 04/06/2024 23:09:08 Acute maxillary sinusitis 51880716 J01.00 Health Concerns Section Related Observation LastModified by Organization Detai ls LastModified Time None Recorded Concern Status LastModified by Organization Details LastModified Time None Recorded Advance Directives Directive None Recorded Payers Encounter Date Sequence Insurance Name Policy Number Policy Fong Covered Member ID Fong Member ID Guarantor Name 04/05/2024 1 [place] Carlos Nicole [id number] Carlos [place] 04/05/2024 2 *SELF PAY* Carlos Nicole [id number] Carlos Nicole Notes Date Note Type Note Provider Name and Address Organization Details Recorded Time 04/05/2024 text/html 43 yo female presents c/o sinus congestion, nasal congestion, greenish nasal discharge, post nasal drip, hoarse voice, and headache for 18 days. Patient has been taking Sinex, Mucinex sinus max, DayTIme, and Benadryl. Patient denies fever, chills, shortness of breath, or wheezing. Patient had close contact with sick person on 04/03/2024. Johnathan Angeles DO 1 [facility] [address], [place], [address], [facility] 04/06/2024 19:26:01 OBGyn Episode No OBEpisode recorded.
--- OUTSIDE RECORDS SUMMARY | 2024-06-02 14:21 | XMS_ITS | Clinical Summary ---
Author Organization [facility] Care Team Providers Care Supervisor Accounts Receivable Name Role Phone Pepe Mak MD Primary Care Provider [phone] Allergies Active Allergy Reactions Criticality Noted Date Comments Acetaminophen Codeine Hydrocodone Hydrocodone-Acetaminophen Pregabalin Anaphylaxis High 04/03/2021 Metronidazole Ondansetron Medications butalbital-acet aminophen-caffe ine (FIORICET) 50-300-40 mg per capsule take 1 by oral route every 4 hours as need for migraine 0 0 6 Active omeprazole (PriLOSEC) 40 mg capsule take 1 capsule by oral route 2 times every day before a meal 0 0 6 Active amitriptyline (ELAVIL) 75 mg tablet TAKE 1 TABLET BY ORAL ROUTE EVERY DAY AT BEDTIME 30 1 6 Active Additional Information Patient taking differently: 50 mg Nightly, Reported on 04/03/2021 oxyCODONE ER (OxyCONTIN) 80 mg 12 hr abuse-deterrent tablet take 1 tablet by oral route every 12 hours 0 0 4 Active TiZANidine (ZANAFLEX) 4 mg capsule Take 4 mg by mouth 3 (three) times a day 0 9 Active SUMAtriptan (IMITREX) 50 mg tablet sumatriptan 50 mg tablet Active NARCAN 4 mg/actuation spray,non-aeros ol PLACE 1 SPRAY INTO NOSTRIL ONCE FOR OVERSEDATION, REPEAT IN 2-3 MINUTES IF NEEDED FOR UP TO 2 DOSES 0 9 Active promethazine (PHENERGAN) 25 mg tablet Take 25 mg by mouth every 6 (six) hours as needed for nausea or vomiting Active oxyCODONE-aceta minophen (PERCOCET) 7.5-325 mg per tabletIndicatio ns:Pain Take 1 tablet by mouth every 6 (six) hours as needed Active medroxyPROGESTE Davey (DEPO-PROVERA) 150 mg/mL injection Inject 150 mg into the muscle as instructed every 3 (three) months Active propranoloL (INDERAL) 80 mg tablet Take 80 mg by mouth daily before lunch Active famotidine (PEPCID) 10 mg tablet Take 10 mg by mouth 2 (two) times a day Active dicyclomine (BENTYL) 10 mg capsule Take 1 capsule (10 mg total) by mouth 2 (two) times a day before breakfast and dinner 90 capsule 3 2 Active mesalamine (LIALDA) 1.2 gram EC tabletIndicatio ns:Ulcerative Colitis Take 2 tablets (2.4 g total) by mouth daily 180 tablet 3 2 Active budesonide EC (ENTOCORT EC) 3 mg 24 hr capsule Take 3 capsules (9 mg total) by mouth daily 270 capsule 3 2 Active diphenoxylate-a tropine (LOMOTIL) 2.5-0.025 mg per tablet TAKE 2 TABLETS BY MOUTH EVERY 8 HOURS NEEDED FOR DIARRHEA 120 tablet 3 2 Active Active Problems Problem Noted Date Diagnosed Date Microscopic colitis 07/27/2021 Assessment & Plan (07/27/2021 11:41 AM CDT): Patient has chronic diarrhea and recent colonoscopy showed changes of microscopic colitis. 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 Will start dicyclomine 3 times daily. Start Lialda 2.4 g daily. Start budesonide 9 mg daily. She may continue to use Lomotil as needed. Will check labs with the next visit and follow-up in 6 weeks. Chronic diarrhea 07/27/2021 Assessment & Plan (07/27/2021 11:41 AM CDT): Likely secondary to microscopic colitis plus element of IBS. Will also start dicyclomine 10 mg 3 times daily before meals. Family history of colon cancer 12/21/2020 Overview (12/21/2020): Added automatically from request for surgery [id number] Assessment & Plan (07/27/2021 11:40 AM CDT): Mother and grandfather had colon cancer. Next colonoscopy is in for years Encounter for screening colonoscopy 12/21/2020 Overview (12/21/2020): Added automatically from request for surgery [id number] Chronic migraine without aura 02/04/2019 Trochanteric bursitis of right hip 11/04/2016 Trochanteric bursitis, left hip 11/04/2016 Chronic midline low back pain with sciatica 10/17 Postprocedural state 12/15/2013 Overview (05/23/2016): Postprocedural state finding Surgical History Surgery Date Site/Laterality Comments LUMBAR SPINE SURGERY Surgery, lumbar spine SPINAL FUSION Spinal fusion, lumbar COLONOSCOPY 04/03/2021 1st Medical History Medical History Date Comments Osteoarthritis Osteoarthritis Hx Other Medical DVT Hx Other Medical pulmonary embol i GERD (gastroesophageal reflux disease) Family History Medical History Relation Name Comments Colon cancer Maternal Grandfather Colon cancer Mother Other Other 1 Family history of lupus - aunt; Other Other 2 Family history of rheumatoid arthritis - aunt, grandmother; Relation Name Status Comments Maternal Grandfather Mother Other 1 Other 2 Social History Tobacco Use Types Packs/Day Years Used Date Smoking Tobacco: Former Cigarettes Q uit: 04/03/2015 Smokeless Tobacco: Never Alcohol Use Standard Drinks/Week Comments No 0 (1 standard drink = 0.6 oz pur e alcohol) AUDIT-C Answer Date Recorded Q1: How often do you have a drink containing alc ohol? Monthly or less 04/03/2021 Q2: How many drinks containi ng alcohol do you have on a typical day when you are drinking? 1 or 2 04/03/2021 Q3: How often do you have si x or more drinks on one occasion? Less than monthly 04/03/2021 Comments No Sex and Gender Information Value Date Recorded Sex Assigned at Not on file Legal Sex Female 7:33 PM CHIMNEY BUILDER Gender Identity Not on file Sexual Orientation Not on file Obstetrics History Last Filed Vital Signs Vital Sign Reading Time Taken Comments Blood Pressure 100/58 07/18/2021 9:33 AM CDT Pulse 107 07/18/2021 9:33 AM CDT Temperature 36.8 C (98.2 F) 04/03/2021 9:19 AM CHIMNEY BUILDER Respiratory Rate 20 04/03/2021 9:19 AM CHIMNEY BUILDER Oxygen Saturation 97% 07/18/2021 9:33 AM CDT Inhaled Oxygen Concentration - - Weight 67.6 kg (149 lb) 07/18/2021 9:33 AM CDT Height 165.1 cm (5' 5 ) 07/18/2021 9:33 AM CDT Body Mass Index 24.79 07/18/2021 9:33 AM CDT Plan of Treatment Health Maintenance Due Date Last Done Comments Breast Cancer Screening-Mammogram 1980 Cervical Cancer Screening 1979 Depression Screening 1979 Varicella Vaccines (1 of 2 - 13+ 2-dose series) 05/06/1992 DTaP/Tdap/Td Vaccine (5 - Tdap) 08/06/1994 08/05/1994, 09/18/1984, 12/13/1980, Additional history exists Hepatitis B Screening 05/06/1997 Regular Well Visit/Exam 18-64 05/06/1997 Covid-19 Vaccine ( season) 2023 06/12/2020, 05/20/2020 Influenza Vaccine (#1) 2023 , 03/01/2020, 12/29/2018, Additional history exists Colon Cancer Screening-Colonoscopy 04/03/2031 04/03/2021 Hepatitis C Screening Completed 01/17/2016 HPV Vaccines Aged Out No longer eligi ble based on patient's age to complete this topic Pneumococcal vaccine <65 Aged Out No longer eligible based on patient's age to complete this topic Procedures Procedure Name Priority Date/Time Associated Diagnosis Comments COLONOSCOPY 04/03/2021 7:17 AM CHIMNEY BUILDER SERUM HEPATITIS C AB Routine 01/17/2016 2:44 PM CHIMNEY BUILDER from Last 3 Months or Most Recently Relevant to Health Maintenance Results * COLONOSCOPY (04/03/2021 7:17 AM CHIMNEY BUILDER) Anatomical Region Laterality Modality Other Narrative Procedure Note Jai Hemphill MD - 04/03/2021 7:17 AM CST [facility] Patient Name: Carlos Nicole Procedure Date: 04/03/2021 7:17 AM Date of : 1980 Admit Type: Outpatient Age: 40 Gender: Female Attending MD: Jai Hemphill M.D. Room: [facility] ENDOSCOPY ROOM 1 Note Status: Finalized Patient Profile: Last Colonoscopy: none. The patient's first colonoscopy is today. Her mother and grandfatherhad colon cancer. The patient has issues with diarrheaand she had the unexplained weight loss last year. Procedure: Colonoscopy Indications: Screening in patient at increased risk: Familyhistory of 1st-degree relative with colorectal cancerbefore age 60 years Referring MD: Pepe Mak M.D. Providers: Jai Hemphill M.D. Impression: - The entire examined colon is normal. Biopsied. - Small internal hemorrhoids Recommendation: - Continue present medications. - Repeat colonoscopy in 4 years for screeningpurposes. - Await pathology results. Medicines: Monitored Anesthesia Care Complications: No immediate complications. Estimated Blood Loss: Estimated blood loss: none. Procedure: Pre-Anesthesia Assessment: - Prior to the procedure, a History and Physicalwas performed, and patient medications and allergieswere reviewed. The patient's tolerance of previous anesthesia was also reviewed. The risks andbenefits of the procedure and the sedation options and risks were discussed with the patient. All questions were answered, and informed consent was obtained. Prior Anticoagulants: The patient has taken no previous anticoagulant or antiplatelet agents. ASA Grade Assessment: III - A patient with severe systemic disease. After reviewing the risks and benefits,the patient was deemed in satisfactory condition to undergo the procedure. The benefits, risks and alternatives of theprocedure and sedation were discussed and informed consentwas obtained. All questions were answered. Please referto the signed informed consent document in the medical record. The scope was passed under direct vision.The Pediatric Colonoscope PCF-H190L [id number] was introduced through the anus and advanced to the the cecum, identified by appendiceal orifice andileocecal valve. The bowel preparation used was Miralax via split dose instruction. The bowel preparation usedwas bisacodyl tablets via split dose instruction. The quality of the bowel preparation was excellent.Bowel prep was administered using a split dose. Findings: The perianal and digital rectal examinations were normal. The cecum appeared normal. The terminal ileum was normal The colon (entire examined portion) appeared normal. No polyps and no mass lesions noted. No inflammatory changes noted. Random biopsiesfor histology were taken with a cold forceps from the entire colon for evaluation of microscopic colitis. The rectum appeared normal. Retroflexion showed small internal hemorrhoids. Electronically signed by Jai Hemphill M.D. Jai Hemphill M.D. 04/03/2021 8:55:23 AM Number of Addenda: 0 Note Initiated On: 04/03/2021 7:17 AM Procedure Code(s): --- Professional --- 51507, Colonoscopy, flexible; with biopsy, single or multiple Diagnosis Code(s): --- Professional --- Z80.0, Family history of malignant neoplasm of digestive organs CPT copyright 2019 [employer]. All rights reserved. The codes documented in this report are preliminary and upon microfilm duplicating unit supervisor reviewmay be revised to meet current compliance requirements. Recognized by the [employer] for promoting quality in endoscopy us Jai Hemphill MD ENDOSCOPY PROCEDURES Final Result * Serum Hepatitis C ab (01/17/2016 2:44 PM CHIMNEY BUILDER) HCV ab Negative Negative CDR HISTOR ICAL RESULTS Serum 01/17/2016 2:44 PM CHIMNEY BUILDER us Nivia Cannon MD LAB BLOOD ORDERABLES Final Resul t CDR HISTORICAL RESULTS from Last 3 Months or Most Recently Relevant to Health Maintenance Insurance [facility] MEDICARE [facility] [facility] GOLD REF AETNA MEDICARE GOLD Advance Directives For more information, please contact: [phone] * Full Code (Latest Code Status on File) Date Activated Date Inactivated Comments 04/03/2021 7:57 AM 04/03/2021 1:36 PM * Full Code Date Activated Date Inactivated Comments 04/03/2021 7:57 AM 04/03/2021 7:57 AM Care Teams Supervisor Accounts Receivable Relationship Specialty Start Date End Date Pepe Mak MD PCP - General Family Medicine 12/21/20
--- OUTSIDE RECORDS SUMMARY | 2024-06-02 14:21 | XMS_ITS | Referral Summary ---
Author Organization [facility] Care Team Providers Care Program Management Intern Name Role Phone Pepe Mak MD Primary Care Provider [phone] Allergies Active Allergy Reactions Criticality Noted Date [...] (12/21/2020): Added automatically from request for surgery [id number] Assessment & Plan (07/27/2021 11:40 AM CDT): Mother and grandfather had colon cancer. Next colonoscopy is in for years Encounter for screening colonoscopy 12/21/2020 Overview (12/21/2020): Added automatically from request for surgery [id number] Chronic migraine without aura 02/04/2019 Trochanteric bursitis of right hip 11/04/2016 Trochanteric bursitis, left hip 11/04/2016 Chronic midline low back pain with sciatica 10/17 Postprocedural state 12/15/2013 Overview (05/23/2016): Postprocedural state finding Social History Tobacco Use Types Packs/Day Years [...] on file Legal Sex Female 7:33 PM [employer] Gender Identity Not on file Sexual Orientation Not on file Last Filed Vital Signs Vital Sign Reading Time Taken Comments Blood Pressure 100/58 07/18/2021 9:33 AM CDT Pulse 107 07/18/2021 9:33 AM CDT Temperature 36.8 C (98.2 F) 04/03/2021 9:19 AM [employer] Respiratory Rate 20 04/03/2021 9:19 AM [employer] Oxygen Saturation 97% 07/18/2021 9:33 AM CDT Inhaled Oxygen Concentration - - Weight 67.6 kg (149 lb) 07/18/2021 9:33 AM CDT Height 165.1 cm (5' 5 ) 07/18/2021 9:33 AM CDT Body Mass Index 24.79 07/18/2021 9:33 AM CDT Plan of Treatment Not on file Procedures Procedure Name Priority Date/Time Associated Diagnosis Comments COLONOSCOPY 04/03/2021 7:17 AM [employer] SERUM HEPATITIS C AB Routine 01/17/2016 2:44 PM [employer] from Last 3 Months or Most Recently Relevant to Health Maintenance Results * COLONOSCOPY (04/03/2021 7:17 AM [employer]) Anatomical Region Laterality Modality Other Narrative Procedure Note Jai Hemphill MD - 04/03/2021 7:17 AM CST [facility] Patient Name: Carlos Nicole Procedure Date: 04/03/2021 7:17 AM Date of : 1980 Admit Type: Outpatient Age: 40 Gender: Female Attending MD: Jai Hemphill M.D. Room: [facility] ENDOSCOPY ROOM 1 Note Status: Finalized Patient [...] passed under direct vision.The Pediatric Colonoscope [id number] was introduced through the anus and advanced [...] 7:17 AM Procedure Code(s): --- Professional --- 13991, Colonoscopy, flexible; with biopsy, single or multiple Diagnosis Code(s): --- Professional --- Z80.0, Family history of malignant neoplasm of digestive organs CPT copyright 2019 [employer]. All rights reserved. The codes documented in this report are preliminary and upon barge engineer reviewmay be revised to meet current compliance requirements. Recognized by the [employer] for promoting quality in endoscopy Jai Hemphill MD ENDOSCOPY PROCEDURES Final Result * Serum Hepatitis C ab (01/17/2016 2:44 PM [employer]) HCV ab Negative Negative CDR HISTOR ICAL RESULTS Serum 01/17/2016 2:44 PM [employer] Nivia Cannon MD LAB BLOOD ORDERABLES Final Resul t CDR HISTORICAL RESULTS from Last 3 Months or Most Recently Relevant to Health Maintenance Insurance [employer] MEDICARE GOLD [facility] A[employer] MEDICARE GOLD Advance Directives For more information, please contact: [phone] * Full Code (Latest Code Status on File) Date Activated Date Inactivated Comments 04/03/2021 7:57 AM 04/03/2021 1:36 PM * Full Code Date Activated Date Inactivated Comments 04/03/2021 7:57 AM 04/03/2021 7:57 AM Care Teams Program Management Intern Relationship Specialty Start Date End Date Pepe Mak MD PCP - General Family Medicine 12/21/20
[2024-06-02] MEDS: COSYNTROPIN 0.25 MG/ML VIAL IV PUSH (15:00)
[2024-06-02 16:25] LABS: Cortisol 30 Minute 8.21 ug/dL
== END 2024-06-02 14:01 | disposition home or self-care (01) ==
LOC: ANHLAB 14:06
PROVIDERS: Visit Provider Internal Medicine Endocrinology, Diabetes & Metabolism
DX: R79.89 Other specified abnormal findings of blood chemistry (principal)
CPT/HCPCS: 36415; 82533; 96372; J0834

== ENCOUNTER 2024-07-05 13:16 | Outpatient (CLI) | payer OTHER, SELFPAY ==
--- NOTE | ~2024-07-05 | MR_ITS ---
EXAMINATION: MR pituitary wo/w con DATE: 07/05/2024 14:11 INDICATION: Unspecified central adrenocortical insufficiency. TECHNIQUE: Magnetic resonance imaging (MRI) of the brain and brainstem was performed without and with 14 mL Multihance intravenous contrast. Whole-brain sequences included sagittal T1-weighted FSE, axia l diffusion-weighted FS EPI, axial T2*-weighted GRE, axial T2-weighted FLAIR Propeller, and axial T2- weighted Propeller. Small [id number] sequences included sagittal and coronal T1-weighted FSE cente red at the pituitary. Postcontrast sequences included small [id number] coronal T1-weighted FSE in a time course and sagittal T1-weighted FSE and whole-brain axial T1-weighted FSE. Apparent diffusion coefficient (ADC) maps were created. COMPARISON: None. FINDINGS: There are no areas of restricted diffusion to suggest acute infarction. Normal appearance to the pitu itary which does not extend beyond the cephalad margin of the sella and with midline pituitary stalk. There is a 1 mm focus of low signal intensity in the left posterior aspect of the pituitary gland wh ich is seen only on the final sequence of the coronal postcontrast images without evident correlate o n the remaining images which is equivocal for artifact versus a tiny pituitary adenoma. No intracrani al hemorrhage or abnormal intracranial mass lesion. There are scattered areas of nonspecific increase d T2-weighted signal intensity in the cerebral white matter which appear more numerous than would be expected for age. There are no intraparenchymal signal abnormalities seen on the other pulse sequence s. The ventricles are symmetric and normal in size. There are no abnormal extra-axial fluid collectio ns. Flow voids are seen in the cerebral arteries on the T2-weighted sequences consistent with their e xpected patency. Visualized orbits and soft tissues are unremarkable. There are no areas of abnormal enhancement on the post contrast images. IMPRESSION: 1. 1 mm focus of low signal intensity on a single image in the left posterior aspect of the pituitary equivocal for artifact versus a tiny adenoma. 2. Multiple scattered foci of calcific white matter T2 hyperintensity which are more numerous than ex pected for age. The differential diagnosis includes premature chronic small vessel ischemic disease ( especially if the patient has cardiovascular risk factors), demyelinating disease such as multiple sc lerosis or acute disseminated encephalomyelitis (ADEM), CADASIL, drug abuse, vasculitis, or reactive astrocytosis (gliosis) secondary to nonspecific etiology. Reviewed, dictated and finalized at [facility]. IMPRESSION: 1. 1 mm focus of low signal intensity on a single image in the left posterior a spect of the pituitary equivocal for artifact versus a tiny adenoma. 2. Multiple scattered foci of calcific white matter T2 hyperintensity which are more numerous than expected for age. The differential diagnosis includes stephanie ture chronic small vessel ischemic disease (especially if the patient has cardi ovascular risk factors), demyelinating disease such as multiple sclerosis or ac [place] disseminated encephalomyelitis (ADEM), CADASIL, drug abuse, vasculitis, or reactive astrocytosis (gliosis) secondary to nonspecific etiology.
== END 2024-07-05 13:17 | disposition home or self-care (01) ==
PROVIDERS: PCP Physician Assistant; Visit Provider Internal Medicine Endocrinology, Diabetes & Metabolism
DX: R93.49 Abnormal radiologic findings on diagnostic imaging of other urinary organs (principal); E27.40 Unspecified adrenocortical insufficiency
CPT/HCPCS: 70553; A9577

== ENCOUNTER 2024-09-09 13:45 | Outpatient (CLI) | payer OTHER, SELFPAY ==
--- NOTE | ~2024-09-09 | MR_ITS ---
MRI of the lumbar spine Clinical History: Radiculopathy Technique: Axial T2-weighted images, and sagittal T1-weighted, T2-weighted, and STIR images were acqu ired. Following intravenous administration of 15 cc MultiHance gadolinium, T1-weighted fat-sat imagin g was performed in the axial and sagittal planes. COMPARISON: 06/12/2021 Findings: There is no acute fracture or subluxation of the lumbar spine. Posterior fusion from L4 thr ough S1 is unchanged from prior exam. Stable osseous alignment. No bone marrow signal abnormality see n. At L1-L2, there is no disc bulge or herniation. No spinal canal stenosis or neural foraminal narrowin g. At L2-L3, there is minimal disc bulge with moderate facet arthropathy. There is mild central canal st enosis. There is mild left neural foraminal narrowing. Right neural foramen preserved. At L3-L4, there is severe facet arthropathy. No disc bulge or herniation. There is minimal central ca nal stenosis. Neural foramina are preserved. At L4-L5, there is no disc bulge or herniation. There is prior posterior decompression. No spinal can al stenosis or neural foraminal narrowing. At L5-S1, there is no disc bulge or herniation. There is prior posterior decompression. No spinal can al stenosis or definite neural foraminal narrowing. Paravertebral soft tissues are unremarkable aside from expected postoperative change. No suspicious p ostcontrast enhancement identified. Impression: Stable posterior fusion changes from L4 through S1, as detailed above. Mild degenerative spondylosis at L2-L3. Reviewed, dictated and finalized at [facility]. Impression: Stable posterior fusion changes from L4 through S1, as detailed above. Mild degenerative spondylosis at L2-L3.
== END 2024-09-09 13:46 | disposition home or self-care (01) ==
PROVIDERS: PCP Physician Assistant; Visit Provider Nurse Practitioner Family
DX: M47.817 Spondylosis without myelopathy or radiculopathy, lumbosacral region (principal); Z98.1 Arthrodesis status
CPT/HCPCS: 72158; A9577

== ENCOUNTER 2024-11-01 11:26 | Outpatient (CLI) | payer OTHER, SELFPAY ==
--- NOTE | ~2024-11-01 | MM_ITS ---
EXAMINATION: MM screening ruth BI w francisco HISTORY: Screening TECHNIQUE: Craniocaudal and mediolateral oblique 3-D tomosynthesis images were obtained and synthetic 2-D images were generated. CAD analysis was submitted and interpreted. COMPARISON: 03/11/2023 BREAST PARENCHYMAL COMPOSITION: Not Dense: The breasts are almost entirely fatty. FINDINGS: There is no evidence of suspicious mass, calcification, or architectural distortion to suggest malignancy in either breast. [There has been no significant interval change. IMPRESSION: 1. No mammographic evidence of malignancy. Recommend routine screening mammography in one year. BI-RADS Category 1: Negative Reviewed, dictated, and finalized at [facility]. Reviewed, dictated and finalized at [facility]. IMPRESSION: 1. No mammographic evidence of malignancy. Recommend routine screening mammogra phy in one year. BI-RADS Category 1: Negative
== END 2024-11-01 11:27 | disposition home or self-care (01) ==
PROVIDERS: PCP Physician Assistant; Visit Provider Obstetrics & Gynecology
DX: Z12.31 Encounter for screening mammogram for malignant neoplasm of breast (principal)
CPT/HCPCS: 77063; 77067